=== PATIENT | female | born 1995 | race American Indian/Alaskan Native ===

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

== ENCOUNTER 2017-06-12 21:08 | Emergency (ER) | payer MEDICAID ==
[2017-06-12 21:15] VITALS: BP 119/71
--- NOTE | 2017-06-12 21:26 | EDM.PDOC ---
ED HPI GENERAL MEDICAL PROBLEM - General Chief Complaint: ENT Problem Stated Complaint: cold [id number] Time Seen by Provider: 06/12/17 21:25 Source of Information: Reports: Patient History Limitations: Reports: No Limitations - History of Present Illness INITIAL COMMENTS - FREE TEXT/NARRATIVE: sick for few days and 5 months , throat been hurting worse tonight. 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 History: Reports: None Neurological History: Reports: None Psychiatric History: Reports: Depression Endocrine/Metabolic History: Reports: None Hematologic History: Reports: None Immunologic History: Reports: None Oncologic (Cancer) History: Reports: None Dermatologic History: Reports: None - Past Surgical History Oncologic Surgical History: Reports: None Social & Family History - Family History Family Medical History: Noncontributory - Tobacco Use Smoking Status *Q: Never Smoker Years of Tobacco use: 1 Packs/Tins Daily: 2 Second Hand Smoke Exposure: No - Caffeine Use Caffeine Use: Reports: Coffee - Recreational Drug Use Recreational Drug Use: No ED ROS ENT - Review of Systems Review Of Systems: ROS reveals no pertinent complaints other than HPI. ED EXAM, ENT - Physical Exam Exam: See Below Exam Limited By: No Limitations General Appearance: Alert, WD/WN, No Apparent Distress Ears: TM Dullness Nose: Normal Inspection Mouth/Throat: Pharyngeal Erythema, Tonsillar Erythema, Tonsillar Swelling Head: Atraumatic Neck: Non-Tender, Full Range of Motion Respiratory/Chest: No Respiratory Distress, Lungs Clear, Normal Breath Sounds Cardiovascular: Regular Rate, Rhythm GI/Abdominal: Soft, Non-Tender Neurological: Alert, Oriented, Normal Cognition, Normal Gait, No Motor/Sensory Deficits Psychiatric: Normal Affect, Normal Mood Skin: Warm, Dry, Normal Color Lymphatic: No Adenopathy Course - Vital Signs Last Recorded V/S: Last Vital Signs Temp 37.2 C 06/12/17 21:11 Pulse 109 H 06/12/17 21:11 Resp 18 06/12/17 21:11 BP 119/71 06/12/17 21:11 Pulse Ox 98 06/12/17 21:11 - Orders/Labs/Meds Orders: Active Orders 24 hr Category Date Time Status CULTURE STREP A CONFIRMATION [RM] Stat Lab 06/12/17 21:23 Results STREP SCRN A RAPID W CULT CONF [RM] Stat Lab 06/12/17 21:23 Results - Re-Assessments/Exams Free Text/Narrative Re-Assessment/Exam: 06/12/17 21:45 results discussed with pt. Departure - Departure Time of Disposition: 21:45 Disposition: Home, Self-Care 01 Condition: Good Clinical Impression: URI (upper respiratory infection) Qualifiers: URI type: unspecified viral URI Qualified Code(s): J06.9 - Acute upper respiratory infection, unspecified - Discharge Information Instructions: Upper Respiratory Infection, Adult, [id number] Forms: ED Department Discharge Additional Instructions: 1) rest as much as possible 2) drink lots of liquids 3) take tylenol as needed for fever 4) follow up with OB doctor - My Orders Last 24 Hours: My Active Orders 06/12/17 21:23 CULTURE STREP A CONFIRMATION [RM] Stat STREP SCRN A RAPID W CULT CONF [RM] Stat - Assessment/Plan Last 24 Hours: My Active Orders 06/12/17 21:23 CULTURE STREP A CONFIRMATION [RM] Stat STREP SCRN A RAPID W CULT CONF [RM] Stat
== END 2017-06-12 21:48 | disposition home or self-care (01) ==
LOC: DL.ED 21:08
DX: O99.512 Diseases of the respiratory system complicating pregnancy, second trimester (principal); J06.9 Acute upper respiratory infection, unspecified
CPT/HCPCS: 87081; 87430; 99283

== ENCOUNTER 2017-09-23 11:11 | Inpatient (IN) | payer MEDICAID ==
[~2017-09-23 11:11] MED LIST: Acetaminophen 325 MG Tab PO PRN; Carboprost Tromethamine 250 MCG/1 ML Amp IM PRN; Lactated Ringers 500 ML IV ONE; Lidocaine 1% 30 ML SDV INJECT PRN; Methylergonovine 0.2 MG/1 ML Amp IM PRN; Misoprostol 25 MCG (1/4 of 100 MCG) Tab VAG PRN; Misoprostol 400 MCG (4 X 100 MCG TAB) RECTAL PRN; Oxytocin/Normal Saline 30 UNIT/500 ML BAG IV SCH; Sodium Chloride 0.9% 10 ML Syringe FLUSH PRN; Tranexamic Acid 1,000 MG in Sodium Chloride 0.9% 100 ML IV PRN
[2017-09-23] MEDS ORDERED: Misoprostol 50 MCG (1/2 of 100 MCG) Tab VAG ONE (18:02)
[2017-09-23] MEDS ORDERED: hydrOXYzine HCl 25 MG Tab PO PRN (22:52)
[2017-09-23] MEDS: Lactated Ringers 1,000 ML IV SCH (23:07)
[2017-09-24] MEDS ORDERED: Nalbuphine 10 MG/1 ML Vial IM PRN (01:15)
[2017-09-24] MEDS: Nalbuphine 10 MG/1 ML Vial IM PRN ×2 (03:56→08:43)
[2017-09-24] MEDS: Lactated Ringers 1,000 ML IV SCH ×3 (09:57→14:13)
[2017-09-24] MEDS: Ondansetron 4 MG/2 ML SDV IV PRN (12:49)
[2017-09-24] MEDS ORDERED: fentaNYL 100 MCG/2 ML SDV ONE (13:01)
[2017-09-24] MEDS ORDERED: Bupivacaine 0.75%/D5W 2 ML Amp ONE (13:01)
[2017-09-24] MEDS ORDERED: EPINEPHrine 1 MG/ML SDV ONE (13:02)
--- NOTE | 2017-09-24 13:45 | PCM.SN ---
- Free Text/Narrative Note: Intrathecal. Sitting position, sterile prep and drape. 1 % lidocaine w bicarb for skinwheal to L3 L4 interspace and L2 L3 interspace. Introducer and 24 ga Pencan x2 to L3 L4 with no CSF, introducer and 24 ga pencan x 1 to L2 L3 interspace x 1. Pos CSF neg heme, neg parasthesia. 0.1 ml pf 1:1000 epi, 0.4 ml pf NS , 20 mcg pf sufenta, 30 mcg pf fentanyl and 6 mg of 0.75% pf bupivacaine injected after CSF aspiration. Pt to L lateral position. Procedure time 1300 to 1345
[2017-09-24] MEDS ORDERED: Zolpidem 5 MG Tab PO PRN (17:38)
[2017-09-24] MEDS ORDERED: Docusate Sodium 100 MG Cap PO PRN (17:38)
[2017-09-24] MEDS ORDERED: Simethicone 80 MG Tab.Chew PO PRN (17:38)
[2017-09-24] MEDS ORDERED: Benzocaine/Menthol 20%-0.5% Spray 56 GM Canister TOP PRN (17:38)
[2017-09-24] MEDS ORDERED: Oxytocin 10 Units/1 ML SDV IM PRN (17:38)
[2017-09-24] MEDS ORDERED: Sodium Chloride 0.9% 10 ML Syringe FLUSH PRN (17:48)
[2017-09-25] MEDS: Ibuprofen 800 MG Tab PO PRN ×2 (08:56→17:32)
[2017-09-25] MEDS ORDERED: Prenatal Multivitamin with Calcium/Folic Acid/Iron Tab PO SCH (09:00)
[2017-09-25] MEDS: Ondansetron 4 MG/2 ML SDV IV PRN (09:24)
[2017-09-25] MEDS ORDERED: Measles, Mumps & Rubella Vaccine 0.5 ML SDV SUBCUT ONE (14:22)
[2017-09-26] MEDS: Ibuprofen 800 MG Tab PO PRN (01:51)
[2017-09-26] MEDS ORDERED: Ferrous Sulfate 325 MG Tab PO SCH (08:00)
[2017-09-26] MEDS ORDERED: Prenatal Multivitamin with Calcium/Folic Acid/Iron Tab PO SCH (09:00)
[2017-09-26 10:44] VITALS: BP 109/58
--- NOTE | 2017-09-26 10:53 | PN ---
DATE: 09/23/2017 SUBJECTIVE: The patient is feeling contractions, rating 6/10. She is now status post Cytotec x2, one was 25 mcg and last one was 50 mcg. She is due for another one around 11:00 p.m. OBJECTIVE: heart tones in the 130s to 140s range and as high as in the 150s with accelerations noted. Tocometer reveals contractions every 1 to 2-1/2 minutes. Vaginal exam deferred until next dose of Cytotec may be given. ASSESSMENT AND PLAN: 1. Intrauterine at 37 weeks by 15-week ultrasound complicated by intrahepatic cholestasis of and rubella nonimmune. 2. 1, para 0. 3. Maternal anemia with hemoglobin 9.8 upon admission. PLAN: We will continue to follow clinically and closely. Consider Cytotec repeat dose of 50 mcg at 11:00 p.m. if able. Otherwise, we will continue to follow clinically and closely. Plans were discussed with the patient. She understands and agrees with the above treatment plan. [facility] /[id number]
--- NOTE | 2017-09-26 11:00 | PN ---
DATE: 09/24/2017 SUBJECTIVE: The patient's contractions are getting stronger. She is now status post Cytotec x2. Yesterday, she had spontaneous rupture of membranes that was obvious with clear fluid approximately at 12:30 a.m. Today, her contractions are getting stronger. She rates them as 6 to 8/10, felt in the back region mainly. OBJECTIVE: Vital Signs: Temperature 98.4, heart rate 62, and blood pressure 119/73. Appearance: Female, appears stated age, breathing through contractions, answering questions appropriately in between, and using oxygen currently due to heart tone concerns. Pelvic: heart tones in the 130s range. There is at least one acceleration seen prior to vaginal exam and suspected one during vaginal exam. Tocometer reveals contractions every 1.5 to 3 minutes. Vaginal exam reveals her to be 4 to 4.5 cm, 95% effaced, 0 to -1 station, and vertex suspected with clear fluid noted. ASSESSMENT: Intrauterine now 37 and 1/7 weeks by a 15-week ultrasound, complicated by intrahepatic cholestasis of , now status post Cytotec x2 with spontaneous rupture of membranes at approximately 12:30 a.m., continuing into active labor with cervical change. PLAN: We will continue to follow clinically and closely. She got potential for intrathecal in the near future, and the patient understands and agrees with the above treatment plan. [facility] /[id number]
--- NOTE | 2017-09-26 11:06 | PN ---
DATE: 09/24/2017 SUBJECTIVE: The patient is comfortable, status post intrathecal. Feels occasional pain in her back with contraction. OBJECTIVE: Vital Signs: Blood pressure 107/56 and heart rate 57. Pelvic: heart tones in the 140s to 150s range, felt to be reactive and reassuring. Tocometer, is difficult to read the contractions. Sometimes, they are spaced every 6 to 8 minutes apart, every minute apart. Pitocin is currently at 12 milliunits per minute. Vaginal exam reveals her to be 7 cm, 100% effaced, 0 station, vertex suspected, and IUPC placed after discussion with the patient. ASSESSMENT AND PLAN: Intrauterine at 37 and 1/7 weeks, complicated by ICP and rubella nonimmune. The patient with anemia with hemoglobin of 9.8 upon admission in a G1, P0, with spontaneous rupture of membranes at 0:30 a.m., now status post Cytotec x2 yesterday. Pitocin augmentation today and then subsequently IUPC as above with intrathecal as well. She is continuing to have cervical dilation. We will continue to follow clinically and closely. We will follow MVUs and contraction status closely, now that IUPC has been placed. [facility] /[id number]
[2017-09-26] MEDS ORDERED: fentaNYL 100 MCG/2 ML SDV ITHECAL ONE (11:43)
[2017-09-26] MEDS ORDERED: Sodium Chloride 0.9% 10 ML SDV ONE (11:43)
[2017-09-26] MEDS ORDERED: EPINEPHrine 1 MG/ML SDV IV ONE (11:43)
[2017-09-26] MEDS ORDERED: Bupivacaine 0.75%/D5W 2 ML Amp INJECT ONE (11:43)
--- NOTE | 2017-09-26 11:45 | PN ---
DATE: 09/25/2017 day #1. SUBJECTIVE: The patient is tolerating p.o.'s, ambulating, urinating, and passing flatus. She denies any headaches, visual changes, or upper abdominal pain. Her scratching has decreased. OBJECTIVE: Vital Signs: Temperature 97.5, heart rate 92, blood pressure 108/68, respiratory rate 18. She did have some elevated blood pressures through the night, nothing in the severe range, highest one was 152/83. General Appearance: Lying on the bed. Lungs: Clear to auscultation bilaterally. No increased work of breathing. Heart: S1 and S2. Regular rate and rhythm. Abdomen: Firm uterus at -1 below umbilicus. LABORATORY DATA: White cell count 14.3, hemoglobin 9.8, platelets 393. ASSESSMENT AND PLAN: 1. day #1, status post spontaneous vaginally complicated by shoulder dystocia at 30 seconds, requiring Justo and suprapubic pressure as well as repair of left vaginal sidewall laceration, and uterine atony, requiring Hemabate x1. She had some diarrhea last night, this seems to be resolved at this point in time. 2. Maternal anemia. Hemoglobin 9.8 predelivery and today with increased white cell count. We will re-evaluate CBC tomorrow. She is currently does not have any fevers or uterine tenderness, and we will follow clinically and closely. [facility] /[id number]
--- NOTE | 2017-09-26 11:54 | OBOUT ---
DATE: 09/23/2017 DATE AND TIME OF NST: Date: 09/23/2017 Time: 11:50 to 12:00. REASON FOR NST: 1. Intrauterine at 37 weeks by 15 week ultrasound. 2. Intrahepatic cholestasis of . 3. Rubella nonimmune. 4. History of maternal anemia. NST INTERPRETATION: During this time period, heart tone baseline is approximately 125, and there are two 15 x 15 beat per minute accelerations, making this strip reactive. It is also noted to be reassuring. Tocometer reveals potential of 1 contraction during this time. ASSESSMENT: 1. Nonstress test, reactive and reassuring. 2. Tocometer with contractions. Blood pressure 101/64, heart rate 94, temperature 98, O2 sats 96%. H and P done in through Epic. Otherwise, review of systems fully reviewed and felt to be noncontributory, and update sticker attached to the history and physical through the Epic notes. PLAN: We will proceed to Cytotec type of induction. At current time of dictation, nurse has concerns with a reactive strip. She is going to reapply the monitor as patient is eating and most likely place Cytotec thereafter. Consent has been obtained. For H and P, records were called for reviewed and supplemented by patient history. Review of systems was fully reviewed and otherwise contributory per Epic history and physical. Labs reveal a CBC with a white cell count 8.3, hemoglobin 9.8, and platelets 424. Discussed with patient proceeding with Cytotec in the near future. She understands agrees. [facility] /[id number]
--- NOTE | 2017-09-26 13:19 | PCM.DCSUM1 ---
Discharge Summary - Hospital Course Free Text/Narrative:: PPD #2 09-26-17 DISCHARGE DAY ready for discharge today nursing Rx written for breast pump. Hgb 8.9, down from 9.8 on admit. Asymptomatic VSS, afebrile exam WNL. home today. routine orders. 6 week check, sooner prn. ICP sx resolved. HPI Initial Comments: induced for ICP, , see Maryana's notes for details. viable male , APGARs 6 & 8 7lb 3oz nursing. Diagnosis: Stroke: No - Discharge Data Discharge Date: 09/26/17 Discharge Disposition: Home, Self-Care 01 Condition: Good - Discharge Diagnosis/Problem(s) (1) Vaginal delivery SNOMED Code(s): 463123272 ICD Code: O80 - ENCOUNTER FOR FULL-TERM UNCOMPLICATED DELIVERY Status: Acute Current Visit: Yes (2) Anemia affecting in third trimester SNOMED Code(s): 10976119, 13393078 ICD Code: O99.013 - ANEMIA COMPLICATING , THIRD TRIMESTER Status: Acute Current Visit: Yes (3) Intrahepatic cholestasis of , delivered, curr hospitalization SNOMED Code(s): 080609246 ICD Code: O26.62 - LIVER AND BILIARY TRACT DISORDERS IN CHILDBIRTH; K83.1 - OBSTRUCTION OF BILE DUCT Status: Acute Current Visit: Yes - Patient Instructions Diet: Usual Diet as Tolerated Activity: As Tolerated Activity, Other: light activity at first Showering/Bathing: May Shower Notify Provider of: Fever, Increased Pain, Swelling and Redness Other/Special Instructions: continue iron supplement, use ibuprofen OTC prn for cramping. attend Baby and I if able. 6 week check up. - Discharge Plan *PRESCRIPTION DRUG MONITORING PROGRAM REVIEWED*: Not Applicable *COPY OF PRESCRIPTION DRUG MONITORING REPORT IN PATIENT [place]: Not Applicable Home Medications: Home Meds Vit W-Ca,Fe,FA(<1 mg) [ Vitamins] 1 tab PO DAILY 10/16/16 [ History] Ferrous Sulfate [Iron] 1 tab PO DAILY 09/22/17 [History] hydrOXYzine pamoate [Hydroxyzine Pamoate] 1 - 2 tab PO BEDTIME PRN 09/22/17 [ History] Patient Handouts: Home Care Instructions for Mom - Discharge Summary/Plan Comment DC Time >30 min.: No Discharge Summary/Plan Comment: follow up at 6 weeks and prn. b - General Info Date of Service: 09/26/17 (Discharge summary) Admission Dx/Problem (Free Text: 37 week IUP maternal ICP anemia rubella nonimmune primip Subjective Update: feels well. ready for discharge. flow light nursing. pain controlled needs Rx for breast pump eating, voiding, ambulating well Functional Status: Reports: Pain Controlled - Review of Systems General: Reports: No Symptoms HEENT: Reports: No Symptoms Pulmonary: Reports: No Symptoms Cardiovascular: Reports: No Symptoms Gastrointestinal: Reports: No Symptoms Genitourinary: Reports: No Symptoms 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: Reports: No Symptoms Skin: Reports: No Symptoms Neurological: Reports: No Symptoms Psychiatric: Reports: No Symptoms - Patient Data Vitals - Most Recent: Last Vital Signs Temp 97.9 F 09/26/17 08:00 Pulse 82 09/26/17 08:00 Resp 16 09/26/17 08:00 BP 109/58 L 09/26/17 08:00 Pulse Ox 99 09/25/17 20:00 Weight - Most Recent: 2009 lb Lab Results - Last 24 hrs: Laboratory Results - last 24 hr 09/26/17 Range/Units 06:15 WBC 13.0 H (5.0-10.0) 10^3/uL RBC 3.63 L (4.2-5.4) 10^6/uL Hgb 8.9 L (12.0-16.0) g/dL Hct 28.2 L (37.0-47.0) % MCV 77.7 L (80-100) fL MCH 24.5 L (27.0-34.0) pg MCHC 31.6 L (33.0-35.0) g/dL Plt Count 389 (150-450) 10^3/uL Med Orders - Current: Current Medications Acetaminophen (Tylenol) 650 mg PO Q4H PRN PRN Reason: Pain (Mild 1-3) and fever Last Admin: 09/26/17 09:14 Dose: 650 mg Benzocaine/Menthol (Dermoplast Pain Relief [place]) 0 gm TOP Q4H PRN PRN Reason: Perineal comfort measures Last Admin: 09/25/17 04:13 Dose: 1 applic Carboprost Tromethamine (Hemabate Ds) 250 mcg IM ASDIRECTED PRN PRN Reason: HEMORRHAGE Last Admin: 09/24/17 19:07 Dose: 250 mcg Docusate Sodium (Colace) 100 mg PO BID PRN PRN Reason: Constipation Ferrous Sulfate (Ferrous Sulfate) 325 mg PO BRK [facility] Last Admin: 09/26/17 09:14 Dose: 325 mg Tranexamic Acid 1,000 mg/ (Sodium Chloride) 110 mls @ 660 mls/hr IV ONETIME PRN PRN Reason: Bleeding Lactated Ringer's (Ringers, Lactated) 1,000 mls @ 125 mls/hr IV ASDIRECTED THAIS Last Admin: 09/24/17 14:13 Dose: 125 mls/hr Oxytocin/Sodium Chloride (Pitocin In Ns 30 Unit/500 Ml) 30 unit in 500 mls @ 2 mls/hr IV TITRATE [facility]; Protocol Last Titration: 09/24/17 17:56 Dose: 500 munits/min, 500 mls/hr Oxytocin/Sodium Chloride (Pitocin In Ns 30 Unit/500 Ml) 30 unit in 500 mls @ 2 mls/hr IV TITRATE [facility]; Protocol Ibuprofen (Motrin) 800 mg PO Q8H PRN PRN Reason: Mild Pain or Fever Last Admin: 09/26/17 01:51 Dose: 800 mg Lidocaine HCl (Xylocaine-Mpf 1%) 10 ml INJECT ASDIRECTED PRN PRN Reason: Perineal Repair Last Admin: 09/24/17 19:07 Dose: 10 ml Methylergonovine Maleate (Methergine) 0.2 mg IM ASDIRECTED PRN PRN Reason: Hemorrhage Misoprostol (Cytotec) 800 mcg RECTAL ASDIRECTED PRN PRN Reason: Hemorrhage Misoprostol (Cytotec) 25 mcg VAG Q4H PRN PRN Reason: cervical ripening Last Admin: 09/23/17 13:25 Dose: 25 mcg Ondansetron HCl (Zofran) 4 mg IV Q4H PRN PRN Reason: Nausea/Vomiting Last Admin: 09/25/17 09:24 Dose: 4 mg Oxytocin (Pitocin) 10 unit IM ONETIME PRN PRN Reason: Bleeding Prenat Multivit/Loving/Iron/Folic Ac ( Plus Iron) 1 each PO DAILY THAIS Last Admin: 09/26/17 09:14 Dose: 1 each Simethicone (Simethicone) 80 mg PO Q4H PRN PRN Reason: Gas Sodium Chloride (Saline Flush) 10 ml FLUSH ASDIRECTED PRN PRN Reason: Keep Vein Open Sodium Chloride (Saline Flush) 10 ml FLUSH ASDIRECTED PRN PRN Reason: Keep Vein Open Zolpidem Tartrate (Ambien) 5 mg PO BEDTIME PRN PRN Reason: Insomnia Discontinued Medications Acetaminophen (Tylenol) 650 mg PO Q4H PRN PRN Reason: Pain/Fever Bupivacaine HCl/Dextrose (Marcaine 0.75% Spinal) Confirm Administered Dose 2 ml .ROUTE .STK-MED ONE Stop: 09/24/17 13:02 Last Admin: 09/24/17 20:26 Dose: Not Given Bupivacaine HCl/Dextrose (Marcaine 0.75% Spinal) 0.8 ml INJECT .STK-MED ONE Stop: 09/26/17 11:44 Epinephrine HCl (Adrenalin) Confirm Administered Dose 1 mg .ROUTE .STK-MED ONE Stop: 09/24/17 13:03 Last Admin: 09/24/17 20:27 Dose: Not Given Epinephrine HCl (Adrenalin) 0.1 mg IV .STK-MED ONE Stop: 09/26/17 11:44 Fentanyl (Sublimaze) Confirm Administered Dose 100 mcg .ROUTE .STK-MED ONE Stop: 09/24/17 13:02 Last Admin: 09/24/17 20:26 Dose: Not Given Fentanyl (Sublimaze) 30 mcg ITHECAL .STK-MED ONE Stop: 09/26/17 11:44 Hydroxyzine HCl (Atarax) 50 mg PO Q6H PRN PRN Reason: PAIN Last Admin: 09/23/17 23:30 Dose: 50 mg Lactated Ringer's (Ringers, Lactated) 500 mls @ 500 mls/hr IV .BOLUS ONE Stop: 09/23/17 09:18 Last Admin: 09/23/17 20:00 Dose: 500 mls/hr Lidocaine HCl (Xylocaine-Mpf 1%) 3 ml INJECT .STK-MED ONE Stop: 09/26/17 11:44 Measles/Mumps/Rubella Vaccine Live (M-M-R Ii Vaccine) 0.5 ml SUBCUT .ONCE ONE Stop: 09/25/17 14:23 Last Admin: 09/25/17 14:31 Dose: 0.5 ml Misoprostol (Cytotec) 50 mcg VAG ONETIME ONE Stop: 09/23/17 18:03 Last Admin: 09/23/17 18:50 Dose: 50 mcg Nalbuphine HCl (Nubain) 10 mg IM Q3H PRN PRN Reason: Pain Nalbuphine HCl (Nubain) 20 mg IM Q3H PRN PRN Reason: Pain Last Admin: 09/24/17 08:43 Dose: 20 mg Prenat Multivit/Loving/Iron/Folic Ac ( Plus Iron) 1 each PO DAILY THAIS Last Admin: 09/25/17 08:56 Dose: 1 each Sodium Bicarbonate (Sodium Bicarbonate 4.2%) Confirm Administered Dose 5 meq .ROUTE .STK-MED ONE Stop: 09/24/17 13:03 Last Admin: 09/24/17 20:27 Dose: Not Given Sodium Bicarbonate (Sodium Bicarbonate 4.2%) 0.5 meq .XX .STK-MED ONE Stop: 09/26/17 11:44 Sodium Chloride (Normal Saline) 0.2 ml .XX .STK-MED ONE Stop: 09/26/17 11:44 Sufentanil Citrate (Sufenta) Confirm Administered Dose 50 mcg .ROUTE .STK-MED ONE Stop: 09/24/17 13:03 Last Admin: 09/24/17 20:27 Dose: Not Given Sufentanil Citrate (Sufenta) 20 mcg ITHECAL .STK-MED ONE Stop: 09/26/17 11:44 - Exam General: Reports: Alert, Oriented HEENT: Reports: Pupils Equal, Pupils Reactive, EOMI, Mucous Membr. Moist/[place] Neck: Reports: Supple Lungs: Reports: Clear to Auscultation, Normal Respiratory Effort Cardiovascular: Reports: Regular Rate, Regular Rhythm GI/Abdominal Exam: Normal Bowel Sounds, Soft, Non-Tender, No Organomegaly, No Distention, No Abnormal Bruit, No Mass, Pelvis Stable (Female) Exam: Normal External Exam, Normal Speculum Exam, Normal Bimanual Exam Rectal (Female) Exam: Normal Exam, Normal Rectal Tone Back Exam: Reports: Normal Inspection, Full Range of Motion Extremities: Normal Inspection, Normal Range of Motion, Non-Tender, No Pedal Edema, Normal Capillary Refill Skin: Reports: Warm, Dry, Intact Wound/Incisions: Reports: Healing Well Neurological: Reports: No New Focal Deficit Psy/Mental Status: Reports: Alert, Normal Affect, Normal Mood
--- NOTE | 2017-09-26 13:57 | DEL ---
DATE: 09/24/2017 PREOPERATIVE DIAGNOSES: 1. Intrauterine at 37 and 1/7 weeks by 15-week ultrasound. 2. Intrahepatic cholestasis of . 3. Rubella nonimmune. 4. Maternal anemia with hemoglobin 9.8. 5. G1, P0. 6. Spontaneous rupture of membranes, 12:30 a.m. on 09/24/2017. POSTOPERATIVE DIAGNOSES: 1. Intrauterine at 37 and 1/7 weeks by 15-week ultrasound - delivered. 2. Intrahepatic cholestasis of . 3. Rubella nonimmune. 4. Maternal anemia with hemoglobin 9.8. 5. G1, P0. 6. Spontaneous rupture of membranes, 12:30 a.m. on 09/24/2017. 7. Delivered. 8. MAHSA presentation. 9. 30-second shoulder dystocia requiring Justo and suprapubic pressure. 10.Uterine atony, requiring Hemabate x1. 11.Vaginal sidewall laceration-abrasion bleeding, requiring repair. PROCEDURES PERFORMED: On 09/23, NST followed by Cytotec x2, and then on 09/24/2017, Pitocin with IUPC monitoring and subsequent spontaneous vaginal delivery complicated by shoulder dystocia as above and noted below. ANESTHESIA/ALLERGIES: The patient did receive an intrathecal in the first stage of labor. ESTIMATED BLOOD LOSS: 400 mL. FINDINGS: Male, score and weight are pending. SUMMARY OF EVENTS: The patient is a 21-year-old G1, P0, intrauterine , at 37 weeks upon admission, 37 and 1/7 weeks upon date of delivery that was admitted with intrahepatic cholestasis of , underwent NST followed by Cytotec x2 and then required Pitocin augmentation. On 09/24/2017, IUPC was placed as well. She had spontaneous rupture membranes at 12:30 a.m. prior to those procedures on 09/24/2017. Subsequently, she received an intrathecal in the first stage of labor. She progressed with continued cervical dilation in labor. She was found to be complete and started pushing. I was subsequently called to the room and donned sterile gown and gloves and with the patient pushing with contractions, vertex was delivered in a MAHSA presentation. Shoulder dystocia was noted. Justo maneuver ensued and despite this, shoulder dystocia persisted and then subsequently, nurse applied suprapubic pressure, and anterior shoulder was delivered. Posterior shoulder and rest of delivered thereafter without difficulty. This shoulder dystocia lasted 30 seconds. After delivery, mouth and nares were suctioned. Cord was doubly clamped cut and was brought over warmer for resuscitation. Then, approximately 10 mL cord was obtained for labs. Placenta then delivered with gentle cord traction and fundal massage within 5 to 10 minutes. Perineum, vagina, and perirectal areas were then examined and noted to have a left vaginal sidewall laceration/abrasion bleeding that was subsequently anesthetized 1% lidocaine without epinephrine and repaired in usual fashion using 1-0 Vicryl. Perineum, vagina, perirectal areas were then examined thereafter, no other tears or lacerations noted. Mother is currently stable at time of dictation. is being evaluated and worked up due to respiratory issues as well as tachycardia and potential for fever. Of note, in the second stage of labor, heart tones did reveal some tachycardia and she was delivered shortly after upon my arrival in the room. [facility] /[id number]
== END 2017-09-26 13:40 | disposition home or self-care (01) | DRG 775 ==
LOC: DL.OBCHECK 11:11 → DL.OB 09-24 02:45 → OBSVTOIN 09-24 17:53
PROVIDERS: ADMIT Family Medicine; ATTEND Family Medicine
PROC: 10E0XZZ Delivery of Products of Conception, External Approach (ICD-10-PCS; principal; 2017-09-24)
PROC: 0UQGXZZ Repair Vagina, External Approach (ICD-10-PCS; 2017-09-24)
PROC: 3E033VJ Introduction of Other Hormone into Peripheral Vein, Percutaneous Approach (ICD-10-PCS; 2017-09-24)
PROC: 3E0S3BZ Introduction of Anesthetic Agent into Epidural Space, Percutaneous Approach (ICD-10-PCS; 2017-09-24)
PROC: 10H07YZ Insertion of Other Device into Products of Conception, Via Natural or Artificial Opening (ICD-10-PCS; 2017-09-24)
PROC: 4A1H74Z Monitoring of Products of Conception, Cardiac Electrical Activity, Via Natural or Artificial Opening (ICD-10-PCS; 2017-09-24)
PROC: 4A0HX4Z Measurement of Products of Conception, Cardiac Electrical Activity, External Approach (ICD-10-PCS; 2017-09-24)
PROC: 3E0234Z Introduction of Serum, Toxoid and Vaccine into Muscle, Percutaneous Approach (ICD-10-PCS; 2017-09-25)
DX: O26.62 Liver and biliary tract disorders in childbirth (principal); K83.1 Obstruction of bile duct; O71.4 Obstetric high vaginal laceration alone; Z37.0 Single live birth; Z3A.37 37 weeks gestation of pregnancy; O76 Abnormality in fetal heart rate and rhythm complicating labor and delivery; O99.02 Anemia complicating childbirth; D64.9 Anemia, unspecified; O66.0 Obstructed labor due to shoulder dystocia; O62.2 Other uterine inertia; Z23 Encounter for immunization
CPT/HCPCS: 01967; 36415; 59025; 59300; 59409; 85027; 90471; 90707; A9270-GY; J0171; J2300; J2405; J2590; J3010; J7120

== ENCOUNTER 2017-10-31 20:11 | Emergency (ER) | payer MEDICAID ==
[2017-10-31 20:36] VITALS: BP 116/71
--- NOTE | 2017-10-31 21:14 | EDM.PDOC ---
ED HPI GENERAL MEDICAL PROBLEM - General Chief Complaint: Abdominal Pain Stated Complaint: STOMACH ACHE [id number] Time Seen by Provider: 10/31/17 21:00 Source of Information: Reports: Patient, RN, RN Notes Reviewed History Limitations: Reports: No Limitations - History of Present Illness INITIAL COMMENTS - FREE TEXT/NARRATIVE: Pt to ER with c/o a sore on the lower abdomen under the belly button. She states she was wearing a belt that she thinks may have caused irritation and the sore. She states she stopped wearing the belt. She noticed the area about 1 week ago. Patient states she has been cleaning the area with antibiotic ointment daily. She states she has had the chills but denies N/V/D, fever. Patient states she had a baby vaginally a few weeks ago and is not breast feeding. Patient states she does not have a history of MRSA. Does admit to "pus " drainage from the area as well as small amounts of blood. Patient also c/o recent sore throat and pain to the left ear. Onset: Gradual Lower Abdomen Pain Score (Numeric/FACES): 6 - Related Data Allergies Allergy/AdvReac Type Severity Reaction Status Date / Time No Known Allergies Allergy Verified 10/31/17 20:38 Home Meds: Home Meds Vit W-Ca,Fe,FA(<1 mg) [ Vitamins] 1 tab PO DAILY 10/16/16 [ History] Ferrous Sulfate [Iron] 1 tab PO DAILY 09/22/17 [History] hydrOXYzine pamoate [Hydroxyzine Pamoate] 1 - 2 tab PO BEDTIME PRN 09/22/17 [ History] Past Medical History - Past Health History Medical/Surgical History: Denies Medical/Surgical History HEENT History: Reports: None Cardiovascular History: Reports: None Respiratory History: Reports: None Gastrointestinal History: Reports: None Genitourinary History: Reports: None 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: 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 History: Reports: None Neurological History: Reports: None Psychiatric History: Reports: Depression Endocrine/Metabolic History: Reports: None Hematologic History: Reports: Anemia Immunologic History: Reports: None Oncologic (Cancer) History: Reports: None Dermatologic History: Reports: None - Infectious Disease History Infectious Disease History: Reports: None - Past Surgical History Head Surgeries/Procedures: Reports: None Oncologic Surgical History: Reports: None Social & Family History - Family History Family Medical History: Noncontributory - Tobacco Use Smoking Status *Q: Never Smoker Second Hand Smoke Exposure: No - Caffeine Use Caffeine Use: Reports: Tea - Recreational Drug Use Recreational Drug Use: No ED ROS GENERAL - Review of Systems Review Of Systems: ROS reveals no pertinent complaints other than HPI. ED EXAM, SKIN/RASH Exam: See Below Exam Limited By: No Limitations General Appearance: Alert, WD/WN, No Apparent Distress Eye Exam: Bilateral Eye: EOMI, Normal Inspection Ears: Normal External Exam, Hearing Grossly Normal, Other (canal erythematous and TM have fluid behind them bilaterally) Nose: Normal Inspection Throat/Mouth: Normal Inspection, Normal Voice, No Airway Compromise Head: Atraumatic, Normocephalic Neck: Normal Inspection, Supple, Non-Tender, Full Range of Motion Respiratory/Chest: No Respiratory Distress, Lungs Clear, Normal Breath Sounds, No Accessory Muscle Use, Chest Non-Tender Cardiovascular: Normal Peripheral Pulses, Regular Rate, Rhythm, No Edema, No Gallop, No JVD, No Murmur, No Rub Peripheral Pulses: 2+: Radial (L), Radial (R) GI/Abdominal: Normal Bowel Sounds, Soft, Tender (Female) Exam: Deferred Rectal (Female) Exam: Deferred Back Exam: Normal Inspection, Full Range of Motion Extremities: Normal Inspection, Normal Range of Motion, Non-Tender, No Pedal Edema, Normal Capillary Refill Neurological: Alert, Oriented, CN II-XII Intact, Normal Cognition, Normal Gait, Normal Reflexes, No Motor/Sensory Deficits Psychiatric: Normal Affect, Normal Mood Skin: Warm, Dry, Wound/Incision (1cm linear lac like appearance, 3 areas. Small amount of blood drainage. Foul smelling) Location, Skin: Abdomen Characteristics: Linear Associated features: Warmth, Tenderness, Weeping Lymphatic: No Adenopathy Course - Vital Signs Last Recorded V/S: Last Vital Signs Temp 96.8 F 10/31/17 20:19 Pulse 96 10/31/17 20:19 Resp 19 10/31/17 20:19 BP 116/71 10/31/17 20:19 Pulse Ox 99 10/31/17 20:19 - Orders/Labs/Meds Orders: Active Orders 24 hr Category Date Time Status CULTURE STREP A CONFIRMATION [RM] Stat Lab 10/31/17 20:48 Results CULTURE WOUND [RM] Urgent Lab 10/31/17 23:04 Ordered STREP SCRN A RAPID W CULT CONF [RM] Stat Lab 10/31/17 20:48 Results Labs: Rapid strep: Negative Meds: Medications Discontinued Medications Generic Name Dose Route Start Last Admin Trade Name Alem PRN Reason Stop Dose Admin Mupirocin 1 gm 11/01/17 09:00 10/31/17 21:28 Bactroban Oint TOP 1 dose TID THAIS Administration Mupirocin Confirm 10/31/17 21:24 10/31/17 21:29 Bactroban Oint Administered 10/31/17 21:25 Not Given Dose 22 gm .ROUTE .STK-MED ONE Trimethoprim/Sulfamethoxazole 1 tab 10/31/17 21:17 10/31/17 21:28 Septra Ds PO 10/31/17 21:18 1 tab ONETIME ONE Administration Departure - Departure Time of Disposition: 21:18 Disposition: Home, Self-Care 01 Condition: Fair Clinical Impression: Abscess - Discharge Information *PRESCRIPTION DRUG MONITORING PROGRAM REVIEWED*: No *COPY OF PRESCRIPTION DRUG MONITORING REPORT IN PATIENT [place]: No Instructions: Skin Abscess, [id number] Referrals: Pao Jeong MD [Primary Care Provider] - Forms: ED Department Discharge Additional Instructions: Use an over the counter decongestant for post nasal drip/sore throat and fluid in the ears RX: Bactrim and Bactroban Follow up with your primary care facility - My Orders Last 24 Hours: My Active Orders 10/31/17 20:48 CULTURE STREP A CONFIRMATION [RM] Stat STREP SCRN A RAPID W CULT CONF [RM] Stat 10/31/17 23:04 CULTURE WOUND [RM] Urgent - Assessment/Plan Last 24 Hours: My Active Orders 10/31/17 20:48 CULTURE STREP A CONFIRMATION [RM] Stat STREP SCRN A RAPID W CULT CONF [RM] Stat 10/31/17 23:04 CULTURE WOUND [RM] Urgent
[2017-10-31] MEDS ORDERED: Sulfamethoxazole/Trimethoprim 800-160 MG Tab PO ONE (21:17)
[2017-10-31] MEDS ORDERED: Mupirocin Oint 22 GM Tube ONE (21:24)
[2017-11-01] MEDS ORDERED: Mupirocin Oint 22 GM Tube TOP SCH (09:00)
== END 2017-10-31 21:36 | disposition home or self-care (01) ==
LOC: DL.ED 20:11
DX: O99.73 Diseases of the skin and subcutaneous tissue complicating the puerperium (principal); L02.211 Cutaneous abscess of abdominal wall
CPT/HCPCS: 87070; 87081; 87430; 99283; A9270-GY

== ENCOUNTER 2018-03-27 22:49 | Emergency (ER) | payer MEDICAID ==
[2018-03-27 22:55] VITALS: BP 124/64
--- NOTE | 2018-03-27 23:23 | EDM.PDOC ---
ED HPI GENERAL MEDICAL PROBLEM - General Chief Complaint: ENT Problem Stated Complaint: SICK [id number] Time Seen by Provider: 03/27/18 22:55 Source of Information: Reports: Patient History Limitations: Reports: No Limitations - History of Present Illness INITIAL COMMENTS - FREE TEXT/NARRATIVE: Ed with c/o sore throat since Tuesday. No fever, No cough No nausea or vomiting. Taking cough syrup and ibuprofen Throat Pain Score (Numeric/FACES): 7 - Related Data Allergies Allergy/AdvReac Type Severity Reaction Status Date / Time No Known Allergies Allergy Verified 10/31/17 20:38 Home Meds: Home Meds Vit Calc,Iron,Folic [ Vitamins] 1 tab PO DAILY 10/16/16 [ History] Ferrous Sulfate [Iron] 1 tab PO DAILY 09/22/17 [History] hydrOXYzine pamoate [Hydroxyzine Pamoate] 1 - 2 tab PO BEDTIME PRN 09/22/17 [ History] Past Medical History - Past Health History Medical/Surgical History: Denies Medical/Surgical History HEENT History: Reports: None Cardiovascular History: Reports: None Respiratory History: Reports: None Gastrointestinal History: Reports: None Genitourinary History: Reports: None 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: 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 History: Reports: None Neurological History: Reports: None Psychiatric History: Reports: Depression Endocrine/Metabolic History: Reports: None Hematologic History: Reports: Anemia Immunologic History: Reports: None Oncologic (Cancer) History: Reports: None Dermatologic History: Reports: None - Infectious Disease History Infectious Disease History: Reports: None - Past Surgical History Head Surgeries/Procedures: Reports: None Oncologic Surgical History: Reports: None Social & Family History - Family History Family Medical History: Noncontributory - Tobacco Use Smoking Status *Q: Never Smoker - Caffeine Use Caffeine Use: Reports: Tea - Recreational Drug Use Recreational Drug Use: No ED ROS ENT - Review of Systems Review Of Systems: ROS reveals no pertinent complaints other than HPI. ED EXAM, ENT - Physical Exam Exam: See Below Exam Limited By: No Limitations General Appearance: Alert, No Apparent Distress Eye Exam: Bilateral Eye: EOMI Ears: Normal External Exam, Normal TMs Nose: Normal Inspection Mouth/Throat: Normal Inspection, Normal Lips, Normal Oropharynx Head: Atraumatic, Normocephalic Neck: Normal Inspection, Full Range of Motion Respiratory/Chest: No Respiratory Distress, Lungs Clear, Normal Breath Sounds Cardiovascular: Normal Peripheral Pulses, Regular Rate, Rhythm GI/Abdominal: Normal Bowel Sounds, Soft Back: Full Range of Motion Extremities: Normal Range of Motion Neurological: Alert, Oriented Psychiatric: Normal Affect, Normal Mood Skin: Warm, Dry, Intact, Normal Color Course - Vital Signs Last Recorded V/S: Last Vital Signs Temp 97.2 F 03/27/18 22:51 Pulse 81 03/27/18 22:51 Resp 17 03/27/18 22:51 BP 124/64 03/27/18 22:51 Pulse Ox 99 03/27/18 22:51 - Orders/Labs/Meds Orders: Active Orders 24 hr Category Date Time Status CULTURE STREP A CONFIRMATION [RM] Stat Lab 03/27/18 22:53 Results STREP SCRN A RAPID W CULT CONF [] Stat Lab 03/27/18 22:53 Results Departure - Departure Time of Disposition: 23:19 Disposition: Home, Self-Care 01 Condition: Good Clinical Impression: Sore throat - Discharge Information *PRESCRIPTION DRUG MONITORING PROGRAM REVIEWED*: Not Applicable Instructions: Sore Throat, [id number] Forms: ED Department Discharge Additional Instructions: alternate tylenol and ibuprofen every 4 hours as needed for discomfort increase fluids humidification salt water gargles clinic follow up as needed - My Orders Last 24 Hours: My Active Orders 03/27/18 22:53 CULTURE STREP A CONFIRMATION [RM] Stat STREP SCRN A RAPID W CULT CONF [RM] Stat - Assessment/Plan Last 24 Hours: My Active Orders 03/27/18 22:53 CULTURE STREP A CONFIRMATION [RM] Stat STREP SCRN A RAPID W CULT CONF [RM] Stat
== END 2018-03-27 23:33 | disposition home or self-care (01) ==
LOC: DL.ED 22:49
DX: J02.9 Acute pharyngitis, unspecified (principal)
CPT/HCPCS: 87081; 87430; 99283

== ENCOUNTER 2018-06-22 22:30 | Emergency (ER) | payer MEDICAID, OTHER ==
[2018-06-22 22:40] VITALS: BP 120/73; PULSE 80
--- NOTE | 2018-06-22 22:49 | EDM.PDOC ---
ED HPI GENERAL MEDICAL PROBLEM - General Chief Complaint: Abdominal Pain Stated Complaint: FELL DOWN- Time Seen by Provider: 06/22/18 22:48 Source of Information: Reports: Patient History Limitations: Reports: No Limitations - History of Present Illness INITIAL COMMENTS - FREE TEXT/NARRATIVE: fell onto right side this am been having pain there. also . FHT 150s. no bleeding. has h/o GB problem during . ate chef under salad with ranch dressing tonight. slight nausea but not vomiting. 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: 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 History: Reports: None Neurological History: Reports: None Psychiatric History: Reports: Depression Endocrine/Metabolic History: Reports: None Hematologic History: Reports: Anemia Immunologic History: Reports: None Oncologic (Cancer) History: Reports: None Dermatologic History: Reports: None - Infectious Disease History Infectious Disease History: Reports: None - Past Surgical History Head Surgeries/Procedures: Reports: None Oncologic Surgical History: Reports: None Social & Family History - Family History Family Medical History: Noncontributory - Tobacco Use Smoking Status *Q: Never Smoker Second Hand Smoke Exposure: No - Caffeine Use Caffeine Use: Reports: None - Recreational Drug Use Recreational Drug Use: No ED ROS GENERAL - Review of Systems Review Of Systems: ROS reveals no pertinent complaints other than HPI. ED EXAM, GI/ABD - Physical Exam Exam: See Below Exam Limited By: No Limitations General Appearance: Alert, WD/WN, Mild Distress, Other (upset) Ears: Hearing Grossly Normal Throat/Mouth: Normal Voice, No Airway Compromise Head: Atraumatic Neck: Non-Tender, Full Range of Motion Cardiovascular: Normal Peripheral Pulses GI/Abdominal Exam: Tender, Other (RUQ region). No: Distended, Guarding, Rigid, Rebound Neurological: Alert, Oriented, Normal Cognition, Normal Gait, No Motor/Sensory Deficits Psychiatric: Flat Affect Skin Exam: Warm, Dry, Normal Color Lymphatic: No Adenopathy Course - Vital Signs Last Recorded V/S: Last Vital Signs Temp 37.2 C 06/22/18 22:30 Pulse 80 06/22/18 22:30 Resp 18 06/22/18 22:30 BP 120/73 06/22/18 22:30 Pulse Ox - Orders/Labs/Meds Orders: Active Orders 24 hr Category Date Time Status CULTURE URINE [RM] Stat Lab 06/22/18 22:40 Received Labs: Laboratory Tests 06/22/18 06/22/18 06/22/18 Range/Units 22:40 22:40 23:00 WBC 11.6 H (5.0-10.0) 10^3/uL RBC 4.27 (4.2-5.4) 10^6/uL Hgb 10.1 L (12.0-16.0) g/dL Hct 30.9 L (37.0-47.0) % MCV 72.4 L D (80-100) fL MCH 23.7 L (27.0-34.0) pg MCHC 32.7 L (33.0-35.0) g/dL Plt Count 409 (150-450) 10^3/uL Neut % (Auto) 64.1 (42.2-75.2) % Lymph % (Auto) 27.7 (20.5-50.1) % [place] % (Auto) 7.5 (2-8) % Eos % (Auto) 0.6 L (1.0-3.0) % Baso % (Auto) 0.1 (0.0-1.0) % Sodium (135-145) mmol/L Potassium (3.6-5.0) mmol/L Chloride (101-111) mmol/L Carbon Dioxide (21.0-31.0) mmol/L Anion Gap BUN (7-18) mg/dL Creatinine (0.6-1.3) mg/dL Est Cr Clr Drug Dosing mL/min Estimated GFR (MDRD) BUN/Creatinine Ratio Glucose (74-105) mg/dL Calcium (8.4-10.2) mg/dl Total Bilirubin (0.2-1.0) mg/dL AST (10-42) IU/L ALT (10-60) IU/L Alkaline Phosphatase (42-121) IU/L Total Protein (6.7-8.2) g/dl Albumin (3.2-5.5) g/dl Globulin Albumin/Globulin Ratio Amylase (28-100) U/L Lipase (22-51) U/L Urine Color Yellow (YELLOW) Urine Appearance Slightly cloudy (CLEAR) Urine pH 6.0 (5.0-9.0) Ur Specific [place] 1.025 (1.005-1.030) Urine Protein Negative (NEGATIVE) Urine Glucose (UA) Negative (NEGATIVE) Urine Ketones Negative (NEGATIVE) Urine Occult Blood Small H (NEGATIVE) Urine Nitrite Negative (NEGATIVE) Urine Bilirubin Negative (NEGATIVE) Urine Urobilinogen 1.0 (0.2-1.0) mg/dL Ur Leukocyte Esterase Small H (NEGATIVE) Urine RBC 0-5 /HPF Urine WBC 20-30 H (0-5/HPF) /HPF Ur Epithelial Cells Many H (NOT SEEN) /HPF Urine Bacteria Many H (0-FEW/HPF) /HPF Urine Other See note Urine Yeast Few H (NOT SEEN) /HPF Urine Opiates Screen Negative (NEGATIVE) Ur Oxycodone Screen Negative (NEGATIVE) Urine Methadone Screen Negative (NEGATIVE) Ur Barbiturates Screen Negative (NEGATIVE) U Tricyclic Antidepress Negative (NEGATIVE) Ur Phencyclidine Scrn Negative (NEGATIVE) Ur Amphetamine Screen Negative (NEGATIVE) U Methamphetamines Scrn Negative (NEGATIVE) Urine MDMA Screen Negative (NEGATIVE) U Benzodiazepines Scrn Negative (NEGATIVE) Urine Cocaine Screen Negative (NEGATIVE) U Marijuana (THC) Screen Negative (NEGATIVE) 06/22/18 Range/Units 23:00 WBC (5.0-10.0) 10^3/uL RBC (4.2-5.4) 10^6/uL Hgb (12.0-16.0) g/dL Hct (37.0-47.0) % MCV (80-100) fL MCH (27.0-34.0) pg MCHC (33.0-35.0) g/dL Plt Count (150-450) 10^3/uL Neut % (Auto) (42.2-75.2) % Lymph % (Auto) (20.5-50.1) % [place] % (Auto) (2-8) % Eos % (Auto) (1.0-3.0) % Baso % (Auto) (0.0-1.0) % Sodium 132 L D (135-145) mmol/L Potassium 3.5 L (3.6-5.0) mmol/L Chloride 105 (101-111) mmol/L Carbon Dioxide 17.0 L (21.0-31.0) mmol/L Anion Gap 13.5 BUN 9 (7-18) mg/dL Creatinine 0.5 L (0.6-1.3) mg/dL Est Cr Clr Drug Dosing 161.50 mL/min Estimated GFR (MDRD) > 60 BUN/Creatinine Ratio 18.00 Glucose 82 (74-105) mg/dL Calcium 8.6 (8.4-10.2) mg/dl Total Bilirubin 0.6 (0.2-1.0) mg/dL AST 21 (10-42) IU/L ALT 30 (10-60) IU/L Alkaline Phosphatase 136 H (42-121) IU/L Total Protein 7.3 (6.7-8.2) g/dl Albumin 3.2 (3.2-5.5) g/dl Globulin 4.1 Albumin/Globulin Ratio 0.78 Amylase 91 (28-100) U/L Lipase 31 (22-51) U/L Urine Color (YELLOW) Urine Appearance (CLEAR) Urine pH (5.0-9.0) Ur Specific [place] (1.005-1.030) Urine Protein (NEGATIVE) Urine Glucose (UA) (NEGATIVE) Urine Ketones (NEGATIVE) Urine Occult Blood (NEGATIVE) Urine Nitrite (NEGATIVE) Urine Bilirubin (NEGATIVE) Urine Urobilinogen (0.2-1.0) mg/dL Ur Leukocyte Esterase (NEGATIVE) Urine RBC /HPF Urine WBC (0-5/HPF) /HPF Ur Epithelial Cells (NOT SEEN) /HPF Urine Bacteria (0-FEW/HPF) /HPF Urine Other Urine Yeast (NOT SEEN) /HPF Urine Opiates Screen (NEGATIVE) Ur Oxycodone Screen (NEGATIVE) Urine Methadone Screen (NEGATIVE) Ur Barbiturates Screen (NEGATIVE) U Tricyclic Antidepress (NEGATIVE) Ur Phencyclidine Scrn (NEGATIVE) Ur Amphetamine Screen (NEGATIVE) U Methamphetamines Scrn (NEGATIVE) Urine MDMA Screen (NEGATIVE) U Benzodiazepines Scrn (NEGATIVE) Urine Cocaine Screen (NEGATIVE) U Marijuana (THC) Screen (NEGATIVE) Meds: Medications Discontinued Medications Generic Name Dose Route Start Last Admin Trade Name Alem PRN Reason Stop Dose Admin Hydroxyzine HCl 50 mg 06/22/18 22:48 06/22/18 22:54 Atarax PO 06/22/18 22:49 50 mg ONETIME ONE Administration - Re-Assessments/Exams Free Text/Narrative Re-Assessment/Exam: 06/22/18 23:56 results discussed with pt who is feeling good presently s/p atarax Departure - Departure Time of Disposition: 23:56 Disposition: Home, Self-Care 01 Condition: Good Clinical Impression: Abdominal pain Qualifiers: Abdominal location: right upper quadrant Qualified Code(s): R10.11 - Right upper quadrant pain - Discharge Information Forms: ED Department Discharge Additional Instructions: 1) rest 2) avoid bending lifting straining next 48 hours 3) follow up at clinic - My Orders Last 24 Hours: My Active Orders 06/22/18 22:40 CULTURE URINE [RM] Stat - Assessment/Plan Last 24 Hours: My Active Orders 06/22/18 22:40 CULTURE URINE [RM] Stat
[2018-06-22] MEDS: hydrOXYzine HCl 25 MG Tab PO ONE (22:54)
[2018-06-22 23:32] LABS: ANION GAP 13.5; CHLORIDE,CL 105 mmol/L (101-111); SODIUM,NA 132 mmol/L (135-145)
== END 2018-06-23 00:04 | disposition home or self-care (01) ==
LOC: DL.ED 22:30
DX: O99.89 Other specified diseases and conditions complicating pregnancy, childbirth and the puerperium (principal); R10.11 Right upper quadrant pain; Z79.899 Other long term (current) drug therapy; W19.XXXA Unspecified fall, initial encounter
CPT/HCPCS: 36415; 80053; 80305; 81001; 82150; 83690; 85025; 87086; 99284; A9270

== ENCOUNTER 2019-01-15 15:57 | Emergency (ER) | payer MEDICAID ==
[2019-01-15 16:22] VITALS: BP 110/79; PULSE 92
--- NOTE | 2019-01-15 16:22 | EDM.PDOC ---
ED HPI GENERAL MEDICAL PROBLEM - General Chief Complaint: General Stated Complaint: COUGH Time Seen by Provider: 01/15/19 16:05 Source of Information: Reports: Patient History Limitations: Reports: No Limitations - History of Present Illness INITIAL COMMENTS - FREE TEXT/NARRATIVE: This 23 yo female patient reports to the ED with a stuffy nose, nighttime cough and 2 days of diarrhea. The patient reports she has been having loose bowel movements every 5 minutes since yesterday. The patient reports she was just at the clinic with her son, but did not get an appointment. The patient took 1 dose of Pepto, but has continued to have loose bowel movements. The patient has not taken anything for her stuffy nose or nighttime cough. Duration: Day(s):, Constant Location: Reports: Other Quality: Reports: Other Severity: Moderate Improves with: Reports: None Worsens with: Reports: None Context: Reports: Other Associated Symptoms: Reports: No Other Symptoms - Related Data Allergies Allergy/AdvReac Type Severity Reaction Status Date / Time No Known Allergies Allergy Verified 10/21/18 09:07 Past Medical History - Past Health History Medical/Surgical History: Denies Medical/Surgical History HEENT History: Reports: None Cardiovascular History: Reports: None Respiratory History: Reports: None Gastrointestinal History: Reports: Other (See Below) 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 Genitourinary History: Reports: None 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: , Other (See Below) Other PATTERN FILER History: yeast infections 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 History: Reports: None Neurological History: Reports: None Psychiatric History: Reports: Depression Endocrine/Metabolic History: Reports: None Hematologic History: Reports: Anemia Immunologic History: Reports: None Oncologic (Cancer) History: Reports: None Dermatologic History: Reports: None - Infectious Disease History Infectious Disease History: Reports: None - Past Surgical History Head Surgeries/Procedures: Reports: None GI Surgical History: Reports: None Oncologic Surgical History: Reports: None Social & Family History - Family History Family Medical History: Noncontributory - Caffeine Use Caffeine Use: Reports: Soda ED ROS GENERAL - Review of Systems Review Of Systems: Comprehensive ROS is negative, except as noted in HPI. ED EXAM, GENERAL - Physical Exam Exam: See Below Exam Limited By: No Limitations General Appearance: Alert, WD/WN, No Apparent Distress Eye Exam: Bilateral Eye: EOMI, Normal Inspection, PERRL Ears: Normal External Exam, Normal Canal, Hearing Grossly Normal, Normal TMs Nose: Normal Inspection, Normal Mucosa, No Blood Throat/Mouth: Normal Inspection, Normal Lips, Normal Teeth, Normal Gums, Normal Oropharynx, Normal Voice, No Airway Compromise Head: Atraumatic, Normocephalic Neck: Normal Inspection, Supple, Non-Tender, Full Range of Motion Respiratory/Chest: No Respiratory Distress, Lungs Clear, Normal Breath Sounds, No Accessory Muscle Use, Chest Non-Tender Cardiovascular: Normal Peripheral Pulses, Regular Rate, Rhythm, No Edema, No Gallop, No JVD, No Murmur, No Rub GI/Abdominal: Normal Bowel Sounds, Soft, Non-Tender, No Organomegaly, No Distention, No Abnormal Bruit, No Mass (Female) Exam: Deferred Rectal (Female) Exam: Deferred Back Exam: Normal Inspection, Full Range of Motion, NT Extremities: Normal Inspection, Normal Range of Motion, Non-Tender, Normal Capillary Refill, No Pedal Edema Neurological: Alert Psychiatric: Normal Affect, Normal Mood Skin Exam: Warm, Dry, Intact, Normal Color, No Rash Lymphatic: No Adenopathy Course - Vital Signs Last Recorded V/S: Last Vital Signs Temp 36.2 C 01/15/19 16:16 Pulse 92 01/15/19 16:16 Resp 16 01/15/19 16:16 BP 110/79 01/15/19 16:16 Pulse Ox 99 01/15/19 16:16 - Orders/Labs/Meds Labs: Laboratory Tests 01/15/19 01/15/19 Range/Units 16:18 16:18 WBC 11.6 H (5.0-10.0) 10^3/uL RBC 5.02 (4.2-5.4) 10^6/uL Hgb 11.4 L D (12.0-16.0) g/dL Hct 35.5 L (37.0-47.0) % MCV 70.7 L (80-100) fL MCH 22.7 L (27.0-34.0) pg MCHC 32.1 L (33.0-35.0) g/dL Plt Count 486 H (150-450) 10^3/uL Neut % (Auto) 79.1 H (42.2-75.2) % Lymph % (Auto) 13.8 L (20.5-50.1) % [place] % (Auto) 5.8 (2-8) % Eos % (Auto) 1.1 (1.0-3.0) % Baso % (Auto) 0.2 (0.0-1.0) % Sodium 136 (135-145) mmol/L Potassium 3.7 (3.6-5.0) mmol/L Chloride 107 (101-111) mmol/L Carbon Dioxide 19.0 L (21.0-31.0) mmol/L Anion Gap 13.7 BUN 14 (7-18) mg/dL Creatinine 0.8 (0.6-1.3) mg/dL Est Cr Clr Drug Dosing 100.10 mL/min Estimated GFR (MDRD) > 60 BUN/Creatinine Ratio 17.50 Glucose 103 (74-105) mg/dL Calcium 9.1 (8.4-10.2) mg/dl Total Bilirubin 0.5 (0.2-1.0) mg/dL AST 21 (10-42) IU/L ALT 31 (10-60) IU/L Alkaline Phosphatase 114 (42-121) IU/L Total Protein 9.1 H (6.7-8.2) g/dl Albumin 4.5 (3.2-5.5) g/dl Globulin 4.6 Albumin/Globulin Ratio 0.98 Departure - Departure Time of Disposition: 17:04 Disposition: Home, Self-Care 01 Condition: Fair Clinical Impression: Viral gastroenteritis - Discharge Information *PRESCRIPTION DRUG MONITORING PROGRAM REVIEWED*: Not Applicable *COPY OF PRESCRIPTION DRUG MONITORING REPORT IN PATIENT [place]: Not Applicable Instructions: Viral Gastroenteritis, Adult, [id number] Forms: ED Department Discharge Care Plan Goals: The patient was advised of the examination and lab results during the visit. The patient was encouraged to stick to a BRAT diet (bananas, rice, applesauce and toast) with small frequent sips of fluid. The patient may take over the counter medications for temporary symptoms relief. If the patient has any additional symptoms or concerns, the patient should either return to the emergency department or visit her primary care facility.
[2019-01-15 16:59] LABS: ANION GAP 13.7; CHLORIDE,CL 107 mmol/L (101-111); SODIUM,NA 136 mmol/L (135-145)
== END 2019-01-15 17:15 | disposition home or self-care (01) ==
LOC: DL.ED 15:57
DX: A08.4 Viral intestinal infection, unspecified (principal)
CPT/HCPCS: 36415; 80053; 85025; 99284

== ENCOUNTER 2019-05-19 23:43 | Emergency (ER) | payer MEDICAID, OTHER ==
[2019-05-19 23:53] VITALS: BP 131/76; PULSE 105
--- NOTE | 2019-05-20 00:05 | EDM.PDOC ---
ED HPI GENERAL MEDICAL PROBLEM - General Chief Complaint: General Stated Complaint: CHILLS, ACHES, THROWING UP, RIGHT THROAT HURTS Time Seen by Provider: 05/20/19 00:04 Source of Information: Reports: Patient History Limitations: Reports: No Limitations - History of Present Illness INITIAL COMMENTS - FREE TEXT/NARRATIVE: onset sore throat last night also had fever too. not any better tonight with body aching. Right Throat Pain Score (Numeric/FACES): 9 - Related Data Allergies Allergy/AdvReac Type Severity Reaction Status Date / Time No Known Allergies Allergy Verified 05/19/19 23:50 Home Meds: Home Meds . 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 Genitourinary History: Reports: None RECORDS MANAGER History: Reports: , Other (See Below) Other RECORDS MANAGER History: yeast infections 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 History: Reports: None Neurological History: Reports: None Psychiatric History: Reports: Depression Endocrine/Metabolic History: Reports: None Hematologic History: Reports: Anemia Immunologic History: Reports: None Oncologic (Cancer) History: Reports: None Dermatologic History: Reports: None - Infectious Disease History Infectious Disease History: Reports: None - Past Surgical History Head Surgeries/Procedures: Reports: None GI Surgical History: Reports: None Oncologic Surgical History: Reports: None Social & Family History - Family History Family Medical History: Noncontributory - Tobacco Use Smoking Status *Q: Never Smoker Second Hand Smoke Exposure: No - Caffeine Use Caffeine Use: Reports: None - Recreational Drug Use Recreational Drug Use: No ED ROS GENERAL - Review of Systems Review Of Systems: Comprehensive ROS is negative, except as noted in HPI. ED EXAM, GENERAL - Physical Exam Exam: See Below Exam Limited By: No Limitations General Appearance: Alert, WD/WN, No Apparent Distress Ears: Hearing Grossly Normal Throat/Mouth: Normal Voice, No Airway Compromise, Inflammation Head: Atraumatic Neck: Non-Tender, Full Range of Motion Respiratory/Chest: No Respiratory Distress Cardiovascular: Regular Rate, Rhythm GI/Abdominal: Soft, Non-Tender Neurological: Alert, Oriented, Normal Cognition, Normal Gait, No Motor/Sensory Deficits Psychiatric: Normal Affect, Normal Mood Skin Exam: Warm, Dry, Normal Color Lymphatic: No Adenopathy Course - Vital Signs Last Recorded V/S: Last Vital Signs Temp 36.5 C 05/19/19 23:51 Pulse 105 H 05/19/19 23:51 Resp 16 05/19/19 23:51 BP 131/76 05/19/19 23:51 Pulse Ox 98 05/19/19 23:51 - Orders/Labs/Meds Orders: Active Orders 24 hr Category Date Time Status INFLUENZA A+B AG SCREEN [RM] Stat Lab 05/19/19 23:50 Received Amoxicillin [Amoxil] Med 05/20/19 00:12 Once 500 mg PO ONETIME ONE Isolation [COMM] Routine Oth 05/19/19 23:54 Active - Re-Assessments/Exams Free Text/Narrative Re-Assessment/Exam: 05/20/19 00:12 results discussed with pt. Departure - Departure Time of Disposition: 00:12 Disposition: Home, Self-Care 01 Condition: Good Clinical Impression: Streptococcal tonsillopharyngitis - Discharge Information Instructions: Strep Throat, [id number] Forms: ED Department Discharge Additional Instructions: 1) soft diet 2) avoid solid foods 3) take tylenol or motrin for fever rx given; amox 250mg tid x 30 Sepsis Event Note - Evaluation Sepsis Screening Result: No Definite Risk - Focused Exam Vital Signs: Vital Signs Temp Pulse Resp BP Pulse Ox 05/19/19 23:51 36.5 C 105 H 16 131/76 98 Date Exam was Performed: 05/20/19 Time Exam was Performed: 00:12 - My Orders Last 24 Hours: My Active Orders 05/19/19 23:50 INFLUENZA A+B AG SCREEN [RM] Stat 05/19/19 23:54 Isolation [COMM] Routine 05/20/19 00:12 Amoxicillin [Amoxil] 500 mg PO ONETIME ONE - Assessment/Plan Last 24 Hours: My Active Orders 05/19/19 23:50 INFLUENZA A+B AG SCREEN [RM] Stat 05/19/19 23:54 Isolation [COMM] Routine 05/20/19 00:12 Amoxicillin [Amoxil] 500 mg PO ONETIME ONE
[2019-05-20] MEDS ORDERED: Amoxicillin 500 MG Cap PO ONE (00:12)
== END 2019-05-20 00:17 | disposition home or self-care (01) ==
LOC: DL.ED 23:43
DX: J03.00 Acute streptococcal tonsillitis, unspecified (principal)
CPT/HCPCS: 87430; 87804; 99283; A9270

== ENCOUNTER 2019-08-16 08:46 | Emergency (ER) | payer MEDICAID, OTHER, SELFPAY ==
--- NOTE | 2019-08-16 09:23 | EDM.PDOC ---
ED HPI GENERAL MEDICAL PROBLEM - General Chief Complaint: Abdominal Pain Stated Complaint: ABD/HEADACHE/CHILLS Time Seen by Provider: 08/16/19 09:05 Source of Information: Reports: Patient History Limitations: Reports: No Limitations - History of Present Illness INITIAL COMMENTS - FREE TEXT/NARRATIVE: This 23 yo female patient reports to the ED with right upper quadrant abdominal pain and a headache that started last night. The patient reports she did take Tylenol at 0100 with no changes in her symptoms. The patient reports she had spaghetti last night prior to symptom onset. The patient reports she attempted to get into the clinic, but could not get an appointment until tomorrow. The patient reports she was advised that she had gallbladder problems with her last , but has not followed up since the . 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 Genitourinary History: Reports: None ORDER ENTRY REPRESENTATIVE History: Reports: , Other (See Below) Other ORDER ENTRY REPRESENTATIVE History: yeast infections 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 History: Reports: None Neurological History: Reports: None Psychiatric History: Reports: Depression Endocrine/Metabolic History: Reports: None Hematologic History: Reports: Anemia Immunologic History: Reports: None Oncologic (Cancer) History: Reports: None Dermatologic History: Reports: None - Infectious Disease History Infectious Disease History: Reports: None - Past Surgical History Head Surgeries/Procedures: Reports: None GI Surgical History: Reports: None Oncologic Surgical History: Reports: None Social & Family History - Family History Family Medical History: Noncontributory - Tobacco Use Smoking Status *Q: Never Smoker Second Hand Smoke Exposure: No - Caffeine Use Caffeine Use: Reports: Soda - Recreational Drug Use Recreational Drug Use: No ED ROS GENERAL - Review of Systems Review Of Systems: Comprehensive ROS is negative, except as noted in HPI. ED EXAM, GI/ABD - Physical Exam Exam: See Below Exam Limited By: No Limitations General Appearance: Alert, WD/WN, Mild Distress Eyes: Bilateral: Normal Appearance, EOMI Ears: Normal External Exam, Normal Canal, Hearing Grossly Normal, Normal TMs Nose: Normal Inspection, Normal Mucosa, No Blood Throat/Mouth: Normal Inspection, Normal Lips, Normal Teeth, Normal Gums, Normal Oropharynx, Normal Voice, No Airway Compromise Head: Atraumatic, Normocephalic Neck: Normal Inspection, Supple, Non-Tender, Full Range of Motion Respiratory/Chest: No Respiratory Distress, Lungs Clear, Normal Breath Sounds, No Accessory Muscle Use, Chest Non-Tender Cardiovascular: Normal Peripheral Pulses, Regular Rate, Rhythm, No Edema, No Gallop, No JVD, No Murmur, No Rub GI/Abdominal Exam: Normal Bowel Sounds, Soft, No Organomegaly, No Distention, No Abnormal Bruit, No Mass, Pelvis Stable, Tender (RUQ) (Female) Exam: Deferred Rectal (Female) Exam: Deferred Back Exam: Normal Inspection, Full Range of Motion, NT Extremities: Normal Inspection, Normal Range of Motion, Non-Tender, Normal Capillary Refill, No Pedal Edema Neurological: Alert, Oriented, CN II-XII Intact, Normal Cognition, Normal Gait, Normal Reflexes, No Motor/Sensory Deficits Psychiatric: Normal Affect, Normal Mood Skin Exam: Warm, Dry, Intact, Normal Color, No Rash Lymphatic: No Adenopathy Course - Vital Signs Last Recorded V/S: Last Vital Signs Temp 36.9 C 08/16/19 08:55 Pulse 97 08/16/19 08:55 Resp 16 08/16/19 08:55 BP 119/67 08/16/19 08:55 Pulse Ox 98 08/16/19 08:55 - Orders/Labs/Meds Orders: Active Orders 24 hr Category Date Time Status CULTURE URINE [RM] Stat Lab 08/16/19 09:30 Received Labs: Laboratory Tests 08/16/19 08/16/19 08/16/19 Range/Units 09:23 09:23 09:30 WBC 9.6 (5.0-10.0) 10^3/uL RBC 4.61 (4.2-5.4) 10^6/uL Hgb 10.3 L (12.0-16.0) g/dL Hct 32.7 L (37.0-47.0) % MCV 70.9 L (80-100) fL MCH 22.3 L (27.0-34.0) pg MCHC 31.5 L (33.0-35.0) g/dL Plt Count 456 H (150-450) 10^3/uL Neut % (Auto) 71.6 (42.2-75.2) % Lymph % (Auto) 18.5 L (20.5-50.1) % Dawes % (Auto) 8.4 H (2-8) % Eos % (Auto) 1.4 (1.0-3.0) % Baso % (Auto) 0.1 (0.0-1.0) % Sodium 136 (136-145) mmol/L Potassium 3.4 L (3.5-5.1) mmol/L Chloride 104 (98-107) mmol/L Carbon Dioxide 23 (21-32) mmol/L Anion Gap 12.4 (7-13) mEq/L BUN 12 (7-18) mg/dL Creatinine 0.72 (0.55-1.02) mg/dL Est Cr Clr Drug Dosing 111.22 mL/min Estimated GFR (MDRD) > 60 BUN/Creatinine Ratio 16.7 (No establ ref range) Glucose 103 H (74-99) mg/dL Calcium 8.3 L (8.5-10.1) mg/dL Total Bilirubin 0.3 (0.2-1.0) mg/dL AST 12 L (15-37) U/L ALT 27 (14-59) U/L Alkaline Phosphatase 135 H (46-116) U/L Total Protein 8.2 (6.4-8.2) g/dL Albumin 3.4 (3.4-5.0) g/dL Globulin 4.8 Albumin/Globulin Ratio 0.7 Amylase 46 (25-115) U/L Lipase 92 (73-393) U/L Urine Color Yellow (YELLOW) Urine Appearance Clear (CLEAR) Urine pH 5.5 (5.0-9.0) Ur Specific Bristow >= 1.030 (1.005-1.030) Urine Protein Negative (NEGATIVE) Urine Glucose (UA) Negative (NEGATIVE) Urine Ketones Negative (NEGATIVE) Urine Occult Blood Moderate H (NEGATIVE) Urine Nitrite Negative (NEGATIVE) Urine Bilirubin Negative (NEGATIVE) Urine Urobilinogen 0.2 (0.2-1.0) mg/dL Ur Leukocyte Esterase Trace H (NEGATIVE) Urine RBC 5-10 H /HPF Urine WBC 0-5 (0-5/HPF) /HPF Ur Epithelial Cells Few (NOT SEEN) /HPF Urine Bacteria Few (0-FEW/HPF) /HPF Urine Mucus Few H (NOT SEEN) /LPF Urinalysis Comment See note Urine HCG, Qual Urine Opiates Screen (NEGATIVE) Ur Oxycodone Screen (NEGATIVE) Urine Methadone Screen (NEGATIVE) Ur Barbiturates Screen (NEGATIVE) U Tricyclic Antidepress (NEGATIVE) Ur Phencyclidine Scrn (NEGATIVE) Ur Amphetamine Screen (NEGATIVE) U Methamphetamines Scrn (NEGATIVE) Urine MDMA Screen (NEGATIVE) U Benzodiazepines Scrn (NEGATIVE) Urine Cocaine Screen (NEGATIVE) U Marijuana (THC) Screen (NEGATIVE) 08/16/19 08/16/19 Range/Units 09:30 09:30 WBC (5.0-10.0) 10^3/uL RBC (4.2-5.4) 10^6/uL Hgb (12.0-16.0) g/dL Hct (37.0-47.0) % MCV (80-100) fL MCH (27.0-34.0) pg MCHC (33.0-35.0) g/dL Plt Count (150-450) 10^3/uL Neut % (Auto) (42.2-75.2) % Lymph % (Auto) (20.5-50.1) % Dawes % (Auto) (2-8) % Eos % (Auto) (1.0-3.0) % Baso % (Auto) (0.0-1.0) % Sodium (136-145) mmol/L Potassium (3.5-5.1) mmol/L Chloride (98-107) mmol/L Carbon Dioxide (21-32) mmol/L Anion Gap (7-13) mEq/L BUN (7-18) mg/dL Creatinine (0.55-1.02) mg/dL Est Cr Clr Drug Dosing mL/min Estimated GFR (MDRD) BUN/Creatinine Ratio (No establ ref range) Glucose (74-99) mg/dL Calcium (8.5-10.1) mg/dL Total Bilirubin (0.2-1.0) mg/dL AST (15-37) U/L ALT (14-59) U/L Alkaline Phosphatase (46-116) U/L Total Protein (6.4-8.2) g/dL Albumin (3.4-5.0) g/dL Globulin Albumin/Globulin Ratio Amylase (25-115) U/L Lipase (73-393) U/L Urine Color (YELLOW) Urine Appearance (CLEAR) Urine pH (5.0-9.0) Ur Specific Bristow (1.005-1.030) Urine Protein (NEGATIVE) Urine Glucose (UA) (NEGATIVE) Urine Ketones (NEGATIVE) Urine Occult Blood (NEGATIVE) Urine Nitrite (NEGATIVE) Urine Bilirubin (NEGATIVE) Urine Urobilinogen (0.2-1.0) mg/dL Ur Leukocyte Esterase (NEGATIVE) Urine RBC /HPF Urine WBC (0-5/HPF) /HPF Ur Epithelial Cells (NOT SEEN) /HPF Urine Bacteria (0-FEW/HPF) /HPF Urine Mucus (NOT SEEN) /LPF Urinalysis Comment Urine HCG, Qual Negative Urine Opiates Screen Negative (NEGATIVE) Ur Oxycodone Screen Negative (NEGATIVE) Urine Methadone Screen Negative (NEGATIVE) Ur Barbiturates Screen Negative (NEGATIVE) U Tricyclic Antidepress Negative (NEGATIVE) Ur Phencyclidine Scrn Negative (NEGATIVE) Ur Amphetamine Screen Negative (NEGATIVE) U Methamphetamines Scrn Negative (NEGATIVE) Urine MDMA Screen Negative (NEGATIVE) U Benzodiazepines Scrn Negative (NEGATIVE) Urine Cocaine Screen Negative (NEGATIVE) U Marijuana (THC) Screen Negative (NEGATIVE) Departure - Departure Time of Disposition: 12:27 Disposition: Home, Self-Care 01 Condition: Fair Clinical Impression: Gastroenteritis - Discharge Information *PRESCRIPTION DRUG MONITORING PROGRAM REVIEWED*: Not Applicable *COPY OF PRESCRIPTION DRUG MONITORING REPORT IN PATIENT ROME: Not Applicable Instructions: Viral Gastroenteritis, Adult, [id number] Forms: ED Department Discharge Care Plan Goals: The patient was advised of the examination, lab results and ultrasound results during the visit. The patient was encouraged to stick to a BRAT diet (bananas, rice, applesauce and toast) with small frequent sips of fluid. If the patient has any additional symptoms or concerns, the patient should either return to the emergency department or follow-up with her primary care facility. Sepsis Event Note (ED) - Evaluation Sepsis Screening Result: No Definite Risk - Focused Exam Vital Signs: Vital Signs Temp Pulse Resp BP Pulse Ox 08/16/19 08:55 36.9 C 97 16 119/67 98 - My Orders Last 24 Hours: My Active Orders 08/16/19 09:30 CULTURE URINE [RM] Stat - Assessment/Plan Last 24 Hours: My Active Orders 08/16/19 09:30 CULTURE URINE [RM] Stat
[2019-08-16 09:52] LABS: ANION GAP 12.4 mEq/L (7-13); CHLORIDE,CL 104 mmol/L (98-107); SODIUM,NA 136 mmol/L (136-145)
--- NOTE | 2019-08-16 12:23 | US ---
EXAMINATION: Abdomen Ltd SEX: Female AGE: 23 years CLINICAL HISTORY: 23-year-old female right upper quadrant pain Interpretation: Large (17.8 cm long) homogeneously dense liver RUQ. No discrete intrahepatic cystic or solid mass lesion and no abnormal dilatation of intra or extrahepatic biliary ducts (common hepatic duct 4 mm and the common bile duct 5 mm diameter). Normal reniform size, axis and configuration right kidney. No sign of cortical mass, nephrolithiasis or obstructive uropathy on the right. Expected distention and anatomic configuration gallbladder with uniformly thin wall. No sign of mucosal wall polyp or mobile dependent intraluminal echogenic "shadowing" gallstones. No pericystic fluid or wall edema. Pancreas sonographically unremarkable i.e. normal size, anatomic configuration and homogeneous density. No pancreatic mass lesion, major pancreatic duct dilatation or peripancreatic fluid collections. No ascites. CONCLUSION: Mildly enlarged liver. Negative gallbladder and epigastric sonogram.
[2019-08-16 12:52] VITALS: BP 119/70; PULSE 86
== END 2019-08-16 12:33 | disposition home or self-care (01) ==
LOC: DL.ED 08:46
DX: K52.9 Noninfective gastroenteritis and colitis, unspecified (principal)
CPT/HCPCS: 36415; 76705; 80053; 80305-QW; 81001; 81025; 82150; 83690; 85025; 87086; 99284-25

== ENCOUNTER 2019-10-07 19:58 | Emergency (ER) | payer MEDICAID ==
[2019-10-07 20:09] VITALS: BP 130/77; PULSE 77
[2019-10-07] MEDS ORDERED: Sulfamethoxazole/Trimethoprim 800-160 MG Tab PO ONE (21:25)
[2019-10-07] MEDS ORDERED: Phenazopyridine 95 MG Tab PO ONE (21:25)
--- NOTE | 2019-10-07 21:28 | EDM.PDOC ---
ED HPI GENERAL MEDICAL PROBLEM - General Chief Complaint: Genitourinary Problem Stated Complaint: UTI PER PT Time Seen by Provider: 10/07/19 21:26 Source of Information: Reports: Patient History Limitations: Reports: No Limitations - History of Present Illness INITIAL COMMENTS - FREE TEXT/NARRATIVE: Sx started this am not getting better. Vaginal Pain Score (Numeric/FACES): 5 - Related Data Allergies Allergy/AdvReac Type Severity Reaction Status Date / Time No Known Allergies Allergy Verified 08/16/19 09:00 Home Meds: Home Meds . 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 Genitourinary History: Reports: None HIDE CURER History: Reports: , Other (See Below) Other HIDE CURER History: yeast infections 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 History: Reports: None Neurological History: Reports: None Psychiatric History: Reports: Depression Endocrine/Metabolic History: Reports: None Hematologic History: Reports: Anemia Immunologic History: Reports: None Oncologic (Cancer) History: Reports: None Dermatologic History: Reports: None - Infectious Disease History Infectious Disease History: Reports: None - Past Surgical History Head Surgeries/Procedures: Reports: None GI Surgical History: Reports: None Oncologic Surgical History: Reports: None Social & Family History - Family History Family Medical History: Noncontributory - Tobacco Use Smoking Status *Q: Never Smoker Second Hand Smoke Exposure: No - Caffeine Use Caffeine Use: Reports: Coffee - Recreational Drug Use Recreational Drug Use: No ED ROS GENERAL - Review of Systems Review Of Systems: Comprehensive ROS is negative, except as noted in HPI. ED EXAM, RENAL/ - Physical Exam Exam: See Below Exam Limited By: No Limitations General Appearance: Alert, WD/WN, Mild Distress, Other (discomfort). No: Active Emesis Ears: Hearing Grossly Normal Throat/Mouth: Normal Voice, No Airway Compromise Head: Atraumatic Neck: Non-Tender, Full Range of Motion Respiratory/Chest: No Respiratory Distress Cardiovascular: Regular Rate, Rhythm GI/Abdominal: Soft, Non-Tender Neurological: Alert, Oriented, Normal Cognition, Normal Gait, No Motor/Sensory Deficits Psychiatric: Flat Affect Skin Exam: Warm, Dry, Normal Color Lymphatic: No Adenopathy Course - Vital Signs Last Recorded V/S: Last Vital Signs Temp 35.7 C L 10/07/19 20:02 Pulse 77 10/07/19 20:02 Resp 16 10/07/19 20:02 BP 130/77 10/07/19 20:02 Pulse Ox 99 10/07/19 20:02 - Orders/Labs/Meds Orders: Active Orders 24 hr Category Date Time Status UA RFX MACY AND CULT IF INDIC [URIN] Stat Lab 10/07/19 20:00 Received Phenazopyridine [Urinary Pain Relief] Med 10/07/19 21:25 Once 95 mg PO ONETIME ONE Sulfamethoxazole/Trimethoprim [Septra DS] Med 10/07/19 21:25 Once 1 tab PO ONETIME ONE Departure - Departure Time of Disposition: 21:27 Disposition: Home, Self-Care 01 Condition: Good Clinical Impression: UTI, Urinary tract infectious disease - Discharge Information Instructions: Urinary Tract Infection, Adult, [id number] Additional Instructions: 1) drink lots of liquids 2) follow up at clinic rx given; bactrim DS bid x 20 pyridium 100mg tid prn x 12 Sepsis Event Note (ED) - Evaluation Sepsis Screening Result: No Definite Risk - Focused Exam Vital Signs: Vital Signs Temp Pulse Resp BP Pulse Ox 10/07/19 20:02 35.7 C L 77 16 130/77 99 - My Orders Last 24 Hours: My Active Orders 10/07/19 20:00 UA RFX MACY AND CULT IF INDIC [URIN] Stat 10/07/19 21:25 Phenazopyridine [Urinary Pain Relief] 95 mg PO ONETIME ONE Sulfamethoxazole/Trimethoprim [Septra DS] 1 tab PO ONETIME ONE - Assessment/Plan Last 24 Hours: My Active Orders 10/07/19 20:00 UA RFX MACY AND CULT IF INDIC [URIN] Stat 10/07/19 21:25 Phenazopyridine [Urinary Pain Relief] 95 mg PO ONETIME ONE Sulfamethoxazole/Trimethoprim [Septra DS] 1 tab PO ONETIME ONE
== END 2019-10-07 21:30 | disposition home or self-care (01) ==
LOC: DL.ED 19:58
DX: N39.0 Urinary tract infection, site not specified (principal)
CPT/HCPCS: 99283; A9270

== ENCOUNTER 2019-10-08 20:14 | Emergency (ER) | payer MEDICAID ==
[2019-10-08 21:30] VITALS: BP 125/72; PULSE 69
--- NOTE | 2019-10-08 22:00 | CR ---
PROCEDURE INFORMATION: Exam: XR Right Knee Exam date and time: 10/08/2019 9:35 PM Age: 23 years old Clinical indication: Injury or trauma; Fall; Initial encounter; Abrasion; Knee; Right; Additional info: Fall, pain TECHNIQUE: Imaging protocol: XR Right knee. Views: 3 views. COMPARISON: No relevant prior studies available. FINDINGS: Bones/joints: There is no evidence of acute fracture. There is no evidence of joint malalignment or dislocation. Soft tissues: There are no soft tissue masses or fluid collections. IMPRESSION: 1. No evidence of acute fracture. 2. No evidence of acute dislocation.
--- NOTE | 2019-10-08 22:30 | EDM.PDOC ---
ED HPI GENERAL MEDICAL PROBLEM - General Chief Complaint: Lower Extremity Injury/Pain Stated Complaint: FELL ON RIGHT KNEE GOING DOWN STAIRS Time Seen by Provider: 10/08/19 21:25 Source of Information: Reports: Patient History Limitations: Reports: No Limitations - History of Present Illness INITIAL COMMENTS - FREE TEXT/NARRATIVE: ED with c/o pain to right knee, fell tonight going down stairs on to right knee on carpeted stairs. Increased pain with movment, noprior injury. 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 Genitourinary History: Reports: None 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 SOFTWARE ENGINEER History: Reports: , Other (See Below) Other 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 SOFTWARE ENGINEER History: yeast infections 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 History: Reports: None Neurological History: Reports: None Psychiatric History: Reports: Depression Endocrine/Metabolic History: Reports: None Hematologic History: Reports: Anemia Immunologic History: Reports: None Oncologic (Cancer) History: Reports: None Dermatologic History: Reports: None - Infectious Disease History Infectious Disease History: Reports: None - Past Surgical History Head Surgeries/Procedures: Reports: None GI Surgical History: Reports: None Oncologic Surgical History: Reports: None Social & Family History - Family History Family Medical History: Noncontributory - Tobacco Use Smoking Status *Q: Never Smoker - Caffeine Use Caffeine Use: Reports: Coffee - Recreational Drug Use Recreational Drug Use: No Review of Systems - Review of Systems Review Of Systems: Comprehensive ROS is negative, except as noted in HPI. ED EXAM, GENERAL - Physical Exam Exam: See Below Exam Limited By: No Limitations General Appearance: Alert, Anxious, Mild Distress, Obese Eye Exam: Bilateral Eye: PERRL Ears: Normal External Exam, Hearing Grossly Normal Nose: Normal Inspection Throat/Mouth: Normal Inspection Head: Atraumatic, Normocephalic Neck: Normal Inspection Respiratory/Chest: No Respiratory Distress, Normal Breath Sounds Cardiovascular: Normal Peripheral Pulses, Regular Rate, Rhythm Extremities: Joint Swelling (minimal no crepitus), Limited Range of Motion (right knee) Neurological: Alert, Oriented, No Motor/Sensory Deficits Skin Exam: Warm, Dry, Intact, Normal Color. No: Erythema Course - Vital Signs Last Recorded V/S: Last Vital Signs Temp 98.4 F 10/08/19 21:09 Pulse 69 10/08/19 21:09 Resp 16 10/08/19 21:09 BP 125/72 10/08/19 21:09 Pulse Ox 100 10/08/19 21:09 Departure - Departure Time of Disposition: 22:28 Disposition: Home, Self-Care 01 Condition: Good Clinical Impression: Sprain of right knee Fall Qualifiers: Encounter type: initial encounter Qualified Code(s): W19.XXXA - Unspecified fall, initial encounter - Discharge Information *PRESCRIPTION DRUG MONITORING PROGRAM REVIEWED*: No *COPY OF PRESCRIPTION DRUG MONITORING REPORT IN PATIENT R[place]: No Instructions: Crutch Use, Adult, [id number], Knee Sprain, Adult Forms: ED Department Discharge Additional Instructions: alternate tylenol 650mg and ibuprofen 600mg every 4 hours as needed for discomfort ice elevate tariq wrap crutches weight bearing as tolerated follow up clinic later this week if not improving Sepsis Event Note (ED) - Evaluation Sepsis Screening Result: No Definite Risk - Focused Exam Vital Signs: Vital Signs Temp Pulse Resp BP Pulse Ox 10/08/19 21:09 98.4 F 69 16 125/72 100
== END 2019-10-08 22:37 | disposition home or self-care (01) ==
LOC: DL.ED 20:14
DX: S83.91XA Sprain of unspecified site of right knee, initial encounter (principal); W10.9XXA Fall (on) (from) unspecified stairs and steps, initial encounter
CPT/HCPCS: 73562-RT; 99283-25

== ENCOUNTER 2019-10-22 22:17 | Emergency (ER) | payer MEDICAID, OTHER ==
[2019-10-22 23:27] VITALS: BP 146/80; PULSE 94
--- NOTE | 2019-10-23 00:22 | EDM.PDOC ---
ED HPI GENERAL MEDICAL PROBLEM - General Chief Complaint: General Stated Complaint: BODY ACHES, HOT AND COLD, COUGH Time Seen by Provider: 10/22/19 22:20 Source of Information: Reports: Patient History Limitations: Reports: No Limitations - History of Present Illness INITIAL COMMENTS - FREE TEXT/NARRATIVE: ED with c/o general body aches and chills. No cough, no SOB, No sore throat, No vomiting or diarrhea. No known exposure to COVID. Works at [employer]. 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 Genitourinary History: Reports: None 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: , 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 (See Below) 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: yeast infections 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 History: Reports: None Neurological History: Reports: None Psychiatric History: Reports: Depression Endocrine/Metabolic History: Reports: None Hematologic History: Reports: Anemia Immunologic History: Reports: None Oncologic (Cancer) History: Reports: None Dermatologic History: Reports: None - Infectious Disease History Infectious Disease History: Reports: None - Past Surgical History Head Surgeries/Procedures: Reports: None GI Surgical History: Reports: None Oncologic Surgical History: Reports: None Social & Family History - Family History Family Medical History: Noncontributory - Tobacco Use Smoking Status *Q: Never Smoker Second Hand Smoke Exposure: No - Caffeine Use Caffeine Use: Reports: Coffee - Recreational Drug Use Recreational Drug Use: No ED ROS GENERAL - Review of Systems Review Of Systems: Comprehensive ROS is negative, except as noted in HPI. ED EXAM, GENERAL - Physical Exam Exam: See Below Exam Limited By: No Limitations General Appearance: Alert, No Apparent Distress Eye Exam: Bilateral Eye: EOMI Ears: Normal External Exam, Hearing Grossly Normal, Normal TMs Nose: Normal Inspection Throat/Mouth: Normal Inspection Head: Atraumatic, Normocephalic Neck: Normal Inspection Respiratory/Chest: No Respiratory Distress, Lungs Clear, Normal Breath Sounds Cardiovascular: Normal Peripheral Pulses, Regular Rate, Rhythm GI/Abdominal: Normal Bowel Sounds, Soft Extremities: Normal Inspection Neurological: Alert, Oriented Psychiatric: Normal Affect Skin Exam: Warm, Dry, Intact, Normal Color Course - Vital Signs Last Recorded V/S: Last Vital Signs Temp 98.1 F 10/22/19 23:22 Pulse 94 10/22/19 23:22 Resp 16 10/22/19 23:22 BP 146/80 H 10/22/19 23:22 Pulse Ox 100 10/22/19 23:22 - Orders/Labs/Meds Orders: Active Orders 24 hr Category Date Time Status CORONAVIRUS COVID-19 PCR [facility] Urgent Lab 10/22/19 23:00 Received CULTURE STREP A CONFIRMATION [RM] Stat Lab 10/22/19 23:00 Results STREP SCRN A RAPID W CULT CONF [RM] Stat Lab 10/22/19 23:00 Results Isolation [COMM] Routine Oth 10/22/19 22:49 Active Departure - Departure Time of Disposition: 00:20 Disposition: Home, Self-Care 01 Condition: Good Clinical Impression: Myalgia, Fever - Discharge Information *PRESCRIPTION DRUG MONITORING PROGRAM REVIEWED*: No *COPY OF PRESCRIPTION DRUG MONITORING REPORT IN PATIENT [place]: No Instructions: Fever, Adult, 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 Pain, Prevent the Spread of COVID- 19 if You Are Sick - [facility] Referrals: PCP,None [Ordering Only Provider] - Forms: ED Department Discharge Additional Instructions: rest increase fluids tylenol 650mg every 4 hours as needed for discomfort isolate until results of COVID test returned Sepsis Event Note (ED) - Evaluation Sepsis Screening Result: No Definite Risk - Focused Exam Vital Signs: Vital Signs Temp Pulse Resp BP Pulse Ox 10/22/19 23:22 98.1 F 94 16 146/80 H 100 - My Orders Last 24 Hours: My Active Orders 10/22/19 22:49 Isolation [COMM] Routine 10/22/19 23:00 CORONAVIRUS COVID-19 PCR PHL Urgent CULTURE STREP A CONFIRMATION [RM] Stat STREP SCRN A RAPID W CULT CONF [RM] Stat - Assessment/Plan Last 24 Hours: My Active Orders 10/22/19 22:49 Isolation [COMM] Routine 10/22/19 23:00 CORONAVIRUS COVID-19 PCR PHL Urgent CULTURE STREP A CONFIRMATION [RM] Stat STREP SCRN A RAPID W CULT CONF [RM] Stat
== END 2019-10-23 00:29 | disposition home or self-care (01) ==
LOC: DL.ED 22:17
DX: U07.1 COVID-19 (principal)
CPT/HCPCS: 87081; 87430; 87804; 99283; U0002

== ENCOUNTER 2020-05-28 08:56 | Emergency (ER) | payer MEDICAID ==
[2020-05-28 09:25] VITALS: BP 138/73; PULSE 98
[2020-05-28] MEDS ORDERED: Ketorolac 30 MG/ML SDV IM ONE (10:35)
--- NOTE | 2020-05-28 11:18 | EDM.PDOC ---
ED HPI GENERAL MEDICAL PROBLEM - General Chief Complaint: Back Pain or Injury Stated Complaint: PULLED BACK Time Seen by Provider: 05/28/20 09:40 Source of Information: Reports: Patient, RN, RN Notes Reviewed History Limitations: Reports: No Limitations - History of Present Illness INITIAL COMMENTS - FREE TEXT/NARRATIVE: Patient presents to the ED via personal vehicle with complaints of low back pain. The patient reports the pain began abruptly at approximately 0800 while picking up her 2 year old so who weighs 89lbs. She states she felt a "..pull" when picking him up. 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 She denies recent illness, fever, shaking chills, nausea, vomiting, dysuria, hematuria, constipation, loss of bowel/bladder control, decreased motor or sensory function to the lower extremities, or saddle paraesthesia. She denies experiencing pain similar to this in the past. She has taken one dose of Tylenol 650mg with no alleviation of pain. 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 Genitourinary History: Reports: None 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: , 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 (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 Below) 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 infections 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 History: Reports: None Neurological History: Reports: None Psychiatric History: Reports: Depression Endocrine/Metabolic History: Reports: None Hematologic History: Reports: Anemia Immunologic History: Reports: None Oncologic (Cancer) History: Reports: None Dermatologic History: Reports: None - Infectious Disease History Infectious Disease History: Reports: None - Past Surgical History Head Surgeries/Procedures: Reports: None GI Surgical History: Reports: None Oncologic Surgical History: Reports: None Social & Family History - Family History Family Medical History: No Pertinent Family History - Caffeine Use Caffeine Use: Reports: Coffee ED ROS GENERAL - Review of Systems Review Of Systems: Comprehensive ROS is negative, except as noted in HPI. ED EXAM,LOWER BACK PAIN/INJURY - Physical Exam Exam: See Below Exam Limited By: No Limitations General Appearance: Alert, Mild Distress (Pain to midline, lower back) Throat/Mouth: Normal Inspection, Normal Voice, No Airway Compromise Respiratory/Chest: No Respiratory Distress, Lungs Clear, Normal Breath Sounds, No Accessory Muscle Use, Chest Non-Tender Cardiovascular: Normal Peripheral Pulses, Regular Rate, Rhythm, No Edema, No Gallop, No JVD, No Murmur, No Rub GI/Abdominal: Normal Bowel Sounds, Soft, Non-Tender, No Distention, No Mass, Pelvis Stable (Female) Exam: Deferred Rectal (Female) Exam: Deferred Back Exam: Normal Inspection, Full Range of Motion, CVA Tenderness (L), Vertebral Tenderness (Midline, lower back upon palpation; No step off ). No: CVA Tenderness (R), Muscle Spasm, Paraspinal Tenderness Extremities: Normal Inspection, Normal Range of Motion, Non-Tender, No Pedal Edema, Normal Capillary Refill Neurological: Alert, Normal Dorsiflexion, CN II-XII Intact, Normal Plantar Flexion, Normal Gait, Normal Reflexes, No Motor/Sensory Deficits, Oriented x 3 Psychiatric: Tearful Skin Exam: Warm, Dry, Intact, Normal Color, No Rash. No: Ecchymosis, Erythema, Jaundice, Mottled, Pallor, Petechiae Lymphatic: No Adenopathy Course - Vital Signs Last Recorded V/S: Last Vital Signs Temp 97.9 F 05/28/20 09:21 Pulse 98 05/28/20 09:21 Resp 14 05/28/20 09:21 BP 138/73 05/28/20 09:21 Pulse Ox 100 05/28/20 09:21 - Orders/Labs/Meds Orders: Active Orders 24 hr Category Date Time Status CULTURE URINE [RM] Stat Lab 05/28/20 10:22 Received Labs: Laboratory Tests 05/28/20 05/28/20 Range/Units 10:16 10:22 HCG, Qual Negative Urine Color Yellow (YELLOW) Urine Appearance Clear (CLEAR) Urine pH 6.0 (5.0-9.0) Ur Specific [place] >= 1.030 (1.005-1.030) Urine Protein Negative (NEGATIVE) Urine Glucose (UA) Negative (NEGATIVE) Urine Ketones Negative (NEGATIVE) Urine Occult Blood Large H (NEGATIVE) Urine Nitrite Negative (NEGATIVE) Urine Bilirubin Negative (NEGATIVE) Urine Urobilinogen 0.2 (0.2-1.0) mg/dL Ur Leukocyte Esterase Small H (NEGATIVE) Urine RBC 0-5 /HPF Urine WBC 10-20 H (0-5/HPF) /HPF Ur Epithelial Cells Few (NOT SEEN) /HPF Urine Bacteria Few (0-FEW/HPF) /HPF Meds: Medications Discontinued Medications Generic Name Dose Route Start Last Admin Trade Name Alem PRN Reason Stop Dose Admin Ketorolac Tromethamine 60 mg 05/28/20 10:35 05/28/20 11:13 Ketorolac 30 Mg/Ml Sdv IM 05/28/20 10:36 60 mg ONETIME ONE Administration - Radiology Interpretation Free Text/Narrative:: [facility] Final Radiology Report Call: [phone] assistance Online chat: [email or web address] Name: COURTNEY CARLOS Age: 24Years F Date: 05/28/2020 SSN: -- : 1995 Study: CT ABDOMEN PELVIS WO CONT Requesting Physician: Danielle Lorenzo Images: [id number] Addl Studies: Provided Clinical History: Abrupt ack pain with hematuria; r/o kindey stone Contrast: Without Contrast Medium: Contrast Amount: Contrast Method: Page 1 of 2 PROCEDURE INFORMATION: Exam: CT Abdomen And Pelvis Without Contrast Exam date and time: 05/28/2020 11:18 AM Age: 24 years old Clinical indication: Abdominal pain; Additional info: Abrupt ack pain with hematuria; R/O kindey stone TECHNIQUE: Imaging protocol: Computed tomography of the abdomen and pelvis without contrast. Radiation optimization: All CT scans at this facility use at least one of these dose optimization techniques: automated exposure control; mA and/or kV adjustment per patient size (includes targeted exams where dose is matched to clinical indication); or iterative reconstruction . COMPARISON: No relevant prior studies available. FINDINGS: Liver: Normal. No mass. Gallbladder and bile ducts: Normal. No calcified stones. No ductal dilation. Pancreas: Normal. No ductal dilation. Spleen: Normal. No splenomegaly. Adrenal glands: Normal. No mass. Kidneys and ureters: There is slight increased density within the renal medullary region bilaterally. Renal medullary hyperattenuation on unenhanced CT may be related to hydration status, precipitation of drugs within the collecting tubules, possible indicator of nephrocalcinosis or due to medullary sodium chloride concentration. No hydronephrosis. Stomach and bowel: Unremarkable. No obstruction. No mucosal thickening. Appendix: No evidence of appendicitis. Intraperitoneal space: Unremarkable. No free air. No significant fluid collection. Vasculature: Unremarkable. No abdominal aortic aneurysm. Lymph nodes: Unremarkable. No enlarged lymph nodes. Urinary bladder: There is diffuse bladder wall thickening which may be due to bladder outlet obstruction, cystitis, or underdistention. Reproductive: 3.4 cm right ovarian cyst. Bones/joints: Unremarkable. No acute fracture. Soft tissues: Unremarkable. IMPRESSION: 1. There is slight increased density within the renal medullary region bilaterally. Renal medullary hyperattenuation on unenhanced CT may be related to hydration status, precipitation of drugs within the collecting tubules, possible indicator of nephrocalcinosis or due to medullary sodium chloride concentration. 2. 3.4 cm right ovarian cyst. 3. There is diffuse bladder wall thickening which may be due to bladder outlet obstruction, cystitis, or underdistention. COMMENTS: Consistent with the [place] [employer]'s Incidental Findings Committee white paper (J Am Coretta Radiol 2018): Any incidental renal lesion less than 1 cm or classified as too small to characterize, or any incidental cystic renal lesion characterized as simple- appearing, is likely benign. No follow-up imaging is recommended for these lesions per consensus recommendations based on imaging criteria. Thank you for allowing us to participate in the care of your patient. Dictated and Authenticated by: Keagan Herrera MD 05/28/2020 11:37 AM Central Time ([place] & [place]) - Re-Assessments/Exams Free Text/Narrative Re-Assessment/Exam: 05/28/20 Patient given Toradol 60mg IM for lower back pain. UA positive for occult blood and leukocyte esterase. Given +L CVA tenderness and abrupt onset of pain will obtain CT abdomen/pelvis to r/o kidney stone. CT negative for kidney stones but does reveal bladder wall thickening. Will treat acute cystitis with Augmentin. Proper body mechanics related to lifting child reviewed with patient, including squatting vs hip-hinge motion. Will treat acute low back pain with tramadol and supportive cares. Red flag signs and symptoms which would warrant reevaluation discussed. Patient verbalized understanding and agreement with the plan of care. Departure - Departure Time of Disposition: 11:59 Disposition: Home, Self-Care 01 Condition: Good Clinical Impression: Acute cystitis with hematuria Low back pain Qualifiers: Chronicity: acute Back pain laterality: midline Sciatica presence: without sciatica Qualified Code(s): M54.5 - Low back pain - Discharge Information *PRESCRIPTION DRUG MONITORING PROGRAM REVIEWED*: Not Applicable *COPY OF PRESCRIPTION DRUG MONITORING REPORT IN PATIENT [place]: Not Applicable Instructions: Muscle Strain, [id number] Referrals: Aishwarya Denise MD [Primary Care Provider] - Forms: ED Department Discharge Additional Instructions: Rx: Augmentin Rx: tramadol 1.) Take all of your antibiotic until it is gone. 2.) In additional to tramadol, you may take acetaminophen (Tylenol) 650mg every six hours, for pain. You may also take ibuprofen (Motrin/Advil) 400mg every six hours, as pain persists. You may stagger these medications so you are taking a dose every three hours. 3.) Drink plenty of water to stay hydrated and flush out your bladder. 4.) Apply warm compresses to your lower back for comfort. Sepsis Event Note (ED) - Evaluation Sepsis Screening Result: No Definite Risk - Focused Exam Vital Signs: Vital Signs Temp Pulse Resp BP Pulse Ox 05/28/20 09:21 97.9 F 98 14 138/73 100 - My Orders Last 24 Hours: My Active Orders 05/28/20 10:22 CULTURE URINE [RM] Stat - Assessment/Plan Last 24 Hours: My Active Orders 05/28/20 10:22 CULTURE URINE [RM] Stat
--- NOTE | 2020-05-28 11:37 | CT ---
PROCEDURE INFORMATION: Exam: CT Abdomen And Pelvis Without Contrast Exam date and time: 05/28/2020 11:18 AM Age: 24 years old Clinical indication: Abdominal pain; Additional info: Abrupt ack pain with hematuria; R/O kindey stone TECHNIQUE: Imaging protocol: Computed tomography of the abdomen and pelvis without contrast. Radiation optimization: All CT scans at this facility use at least one of these dose optimization techniques: automated exposure control; mA and/or kV adjustment per patient size (includes targeted exams where dose is matched to clinical indication); or iterative reconstruction. COMPARISON: No relevant prior studies available. FINDINGS: Liver: Normal. No mass. Gallbladder and bile ducts: Normal. No calcified stones. No ductal dilation. Pancreas: Normal. No ductal dilation. Spleen: Normal. No splenomegaly. Adrenal glands: Normal. No mass. Kidneys and ureters: There is slight increased density within the renal medullary region bilaterally. Renal medullary hyperattenuation on unenhanced CT may be related to hydration status, precipitation of drugs within the collecting tubules, possible indicator of nephrocalcinosis or due to medullary sodium chloride concentration. No hydronephrosis. Stomach and bowel: Unremarkable. No obstruction. No mucosal thickening. Appendix: No evidence of appendicitis. Intraperitoneal space: Unremarkable. No free air. No significant fluid collection. Vasculature: Unremarkable. No abdominal aortic aneurysm. Lymph nodes: Unremarkable. No enlarged lymph nodes. Urinary bladder: There is diffuse bladder wall thickening which may be due to bladder outlet obstruction, cystitis, or underdistention. Reproductive: 3.4 cm right ovarian cyst. Bones/joints: Unremarkable. No acute fracture. Soft tissues: Unremarkable. IMPRESSION: 1. There is slight increased density within the renal medullary region bilaterally. Renal medullary hyperattenuation on unenhanced CT may be related to hydration status, precipitation of drugs within the collecting tubules, possible indicator of nephrocalcinosis or due to medullary sodium chloride concentration. 2. 3.4 cm right ovarian cyst. 3. There is diffuse bladder wall thickening which may be due to bladder outlet obstruction, cystitis, or underdistention. COMMENTS: Consistent with the [place] [employer]'s Incidental Findings Committee white paper (J Am Coretta Radiol 2018): Any incidental renal lesion less than 1 cm or classified as too small to characterize, or any incidental cystic renal lesion characterized as simple-appearing, is likely benign. No follow-up imaging is recommended for these lesions per consensus recommendations based on imaging criteria.
== END 2020-05-28 12:10 | disposition home or self-care (01) ==
LOC: DL.ED 08:56
DX: N30.01 Acute cystitis with hematuria (principal)
CPT/HCPCS: 36415; 74176; 81001; 84703; 87086; 96372; 99283; 99284; J1885

== ENCOUNTER 2020-08-03 12:18 | Inpatient (IN) | payer OTHER, MEDICAID ==
[~2020-08-03 12:18] MED LIST changes: -Acetaminophen 325 MG Tab PO PRN; -Carboprost Tromethamine 250 MCG/1 ML Amp IM PRN; -Lactated Ringers 500 ML IV ONE; -Lidocaine 1% 30 ML SDV INJECT PRN; -Methylergonovine 0.2 MG/1 ML Amp IM PRN; -Misoprostol 25 MCG (1/4 of 100 MCG) Tab VAG PRN; -Misoprostol 400 MCG (4 X 100 MCG TAB) RECTAL PRN; -Oxytocin/Normal Saline 30 UNIT/500 ML BAG IV SCH; +Sodium Chloride 0.9% 1,000 ML IV ONE; -Sodium Chloride 0.9% 10 ML Syringe FLUSH PRN; -Tranexamic Acid 1,000 MG in Sodium Chloride 0.9% 100 ML IV PRN
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
[2020-08-03 12:31] LABS: PTT,PARTIAL THROMBOPLSTIN TIME 22.4 SEC (22.0-34.0)
[2020-08-03 12:34] LABS: ANION GAP 16.6 mEq/L (7-13); CHLORIDE,CL 106 mmol/L (98-107); SODIUM,NA 140 mmol/L (136-145)
[2020-08-03] MEDS ORDERED: fentaNYL 100 MCG/2 ML SDV IVPUSH ONE (12:34)
[2020-08-03] MEDS ORDERED: Lactated Ringers 1,000 ML IV ONE (12:42)
[2020-08-03] MEDS ORDERED: fentaNYL 100 MCG/2 ML SDV IV ONE (12:42)
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
[2020-08-03] MEDS ORDERED: Iopamidol 612 MG/ML 100 ML Bottle IVPUSH ONE (13:08)
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
[2020-08-03] MEDS ORDERED: Ondansetron 4 MG/2 ML SDV IVPUSH PRN (14:06)
[2020-08-03] MEDS ORDERED: Acetaminophen 325 MG Tab PO PRN (14:06)
[2020-08-03] MEDS ORDERED: LORazepam 2 MG/ML SDV IV PRN (14:10)
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
[2020-08-03] MEDS: Ascorbic Acid 500 MG Tab PO SCH (16:07)
[2020-08-03] MEDS: Morphine 2 MG/ML SYRINGE IVPUSH PRN (21:47)
[2020-08-03] MEDS: Acetaminophen/oxyCODONE 325-5 MG Tab PO PRN (22:26)
[2020-08-04] MEDS: Acetaminophen/oxyCODONE 325-5 MG Tab PO PRN ×2 (02:52→08:23)
[2020-08-04] MEDS: Morphine 2 MG/ML SYRINGE IVPUSH PRN (06:13)
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
[2020-08-04] MEDS: Ascorbic Acid 500 MG Tab PO SCH (08:23)
[2020-08-04] MEDS ORDERED: Iron Sucrose Complex 100 MG in Sodium Chloride 0.9% 100 ML IV SCH (09:00)
[2020-08-04] MEDS ORDERED: Iron Sucrose Complex 100 MG/5 ML SDV IVPUSH SCH (09:00)
[2020-08-04] MEDS: Sodium Chloride 0.9% 10 ML Syringe FLUSH PRN ×2 (09:18→09:52)
[2020-08-04 12:41] VITALS: BP 123/81; PULSE 66
== END 2020-08-04 14:20 | disposition home or self-care (01) | DRG 206 ==
LOC: DL.ED 12:18 → DL.MS 13:28
PROVIDERS: ADMIT Internal Medicine; ATTEND Internal Medicine
PROC: 30233N1 Transfusion of Nonautologous Red Blood Cells into Peripheral Vein, Percutaneous Approach (ICD-10-PCS; principal; 2020-08-03)
DX: S27.322A Contusion of lung, bilateral, initial encounter (principal); G93.49 Other encephalopathy; F32.9 Major depressive disorder, single episode, unspecified; Z20.822 Contact with and (suspected) exposure to COVID-19; F10.10 Alcohol abuse, uncomplicated; D47.3 Essential (hemorrhagic) thrombocythemia; D50.9 Iron deficiency anemia, unspecified; N92.0 Excessive and frequent menstruation with regular cycle; F17.200 Nicotine dependence, unspecified, uncomplicated; V49.50XA Passenger injured in collision with unspecified motor vehicles in traffic accident, initial encounter; Y92.410 Unspecified street and highway as the place of occurrence of the external cause; Z79.899 Other long term (current) drug therapy
CPT/HCPCS: 36415; 36430; 51702; 70450; 71260; 72125; 72128; 74177; 80053; 80305-QW; 80307; 81001; 82140; 82668; 82728; 83036; 83540; 83550; 83615; 84484; 84703; 85025; 85045; 85610; 85730; 86850; 86900; 86901; 86920; 86922; 99284; 99285-25; A9270-GY; J1756; J2270; J2405; J3010; J7120; P9016; Q9967; U0002

== ENCOUNTER 2020-08-05 22:55 | Emergency (ER) | payer OTHER, MEDICAID ==
[2020-08-06] MEDS ORDERED: Ketorolac 30 MG/ML SDV IVPUSH ONE (00:24)
[2020-08-06] MEDS ORDERED: Sodium Chloride 0.9% 1,000 ML IV ONE (00:24)
[2020-08-06 00:27] VITALS: BP 127/91; PULSE 78
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
[2020-08-06 01:34] LABS: CHLORIDE,CL 103 mmol/L (98-107); SODIUM,NA 140 mmol/L (136-145)
--- NOTE | 2020-08-06 01:52 | CR ---
PROCEDURE INFORMATION: Exam: XR Chest Exam date and time: 08/06/2020 12:43 AM Age: 24 years old Clinical indication: Shortness of breath; Additional info: Short of breath TECHNIQUE: Imaging protocol: XR of the chest. Views: 1 view. COMPARISON: CT Chest Abdomen Pelvis w Cont 08/03/2020 12:18 PM FINDINGS: Lungs: There are low lung volumes. Otherwise, the lungs are clear. Pleural spaces: Unremarkable. No pleural effusion. No pneumothorax. Heart/Mediastinum: Unremarkable. No cardiomegaly. Bones/joints: Unremarkable. IMPRESSION: There are low lung volumes. Otherwise, the lungs are clear.
[2020-08-06] MEDS ORDERED: Acetaminophen/HYDROcodone 325-10 MG Tab PO ONE (02:10)
== END 2020-08-06 02:29 | disposition home or self-care (01) ==
LOC: DL.ED 22:55
DX: S27.321A Contusion of lung, unilateral, initial encounter (principal); V89.2XXA Person injured in unspecified motor-vehicle accident, traffic, initial encounter
CPT/HCPCS: 36415; 71045; 80053; 85025; 96374; 99283; 99283-25; A9270-GY; J1885; J7030

== ENCOUNTER 2020-08-27 13:17 | Emergency (ER) | payer MEDICAID ==
--- NOTE | 2020-08-27 14:07 | EDM.PDOC ---
ED HPI GENERAL MEDICAL PROBLEM - General Chief Complaint: Gastrointestinal Problem Stated Complaint: VOMITING,FEVER,CHILLS Time Seen by Provider: 08/27/20 14:02 Source of Information: Reports: Patient, RN, RN Notes Reviewed History Limitations: Reports: No Limitations - History of Present Illness INITIAL COMMENTS - FREE TEXT/NARRATIVE: Paloma is a 24 y/o female who presents to the ED via personal vehicle with complaints of fever, sore throat, and dry cough. The patient reports her symptoms began last night and have progressively worsened in that time. She feels her symptoms are the worst at night and experience difficulty sleeping last night. She notes her fever this morning was 101.7 which appropriately reduced with one dose of ibuprofen 400mg. She denies shaking chills, ear pain/pressure, chest pain, palpitations, nausea, diarrhea, constipation, or dysuria. She does attest to sinus congestion and coughing so hard she vomited once. 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 She denies tobacco, alcohol, or recreational drug use. - Related Data Allergies Allergy/AdvReac Type Severity Reaction Status Date / Time No Known Allergies Allergy Verified 08/06/20 00:25 Home Meds: Home Meds Acetaminophen [Tylenol] 650 mg PO Q4H PRN tablet 08/04/20 [Rx] Acetaminophen/HYDROcodone [[place] 325-5 MG] 1 tab PO Q6H PRN 15 Days #15 tab 08/04/20 [Rx] Ascorbic Acid [Vitamin C] 500 mg PO DAILY 30 Days #30 tablet 08/04/20 [Rx] Ferrous Sulfate 325 mg PO BID 30 Days #60 tablet 08/04/20 [Rx] Past Medical History - Past Health History Medical/Surgical History: Denies Medical/Surgical History HEENT History: Reports: None Cardiovascular History: Reports: None Respiratory History: Reports: None Gastrointestinal History: Reports: Other (See Below) 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 Genitourinary History: Reports: None 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: , 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 (See Below) 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 History: Reports: None Neurological History: Reports: None Psychiatric History: Reports: Depression Endocrine/Metabolic History: Reports: None Hematologic History: Reports: Anemia Immunologic History: Reports: None Oncologic (Cancer) History: Reports: None Dermatologic History: Reports: None - Infectious Disease History Infectious Disease History: Reports: None - Past Surgical History Head Surgeries/Procedures: Reports: None GI Surgical History: Reports: None Oncologic Surgical History: Reports: None Social & Family History - Family History Family Medical History: No Pertinent Family History - Caffeine Use Caffeine Use: Reports: Coffee, Energy Drinks, Soda, Tea, Other ED ROS GENERAL - Review of Systems Review Of Systems: Comprehensive ROS is negative, except as noted in HPI. ED EXAM, GENERAL - Physical Exam Exam: See Below Exam Limited By: No Limitations General Appearance: Alert, No Apparent Distress Eye Exam: Bilateral Eye: EOMI, Normal Inspection, PERRL (3mm) Ears: Normal External Exam, Normal Canal, Hearing Grossly Normal. No: Normal TMs Ear Exam: Bilateral Ear: Auricle Normal, Canal Normal, TM Dull Nose: Normal Inspection, Normal Mucosa, No Blood Throat/Mouth: Normal Inspection, Normal Oropharynx, Normal Voice, No Airway Compromise Head: Atraumatic, Normocephalic Neck: Normal Inspection, Supple, Non-Tender, Full Range of Motion. No: Lymphadenopathy (L), Lymphadenopathy (R) Respiratory/Chest: No Respiratory Distress, Lungs Clear, Normal Breath Sounds, No Accessory Muscle Use, Chest Non-Tender. No: Crackles, Rales, Rhonchi, Wheezing Cardiovascular: Normal Peripheral Pulses, Regular Rate, Rhythm, No Edema, No Gallop, No JVD, No Murmur, No Rub Peripheral Pulses: 2+: Radial (L), Radial (R) GI/Abdominal: Normal Bowel Sounds, Soft, Non-Tender, No Distention, No Abnormal Bruit, No Mass, Pelvis Stable (Female) Exam: Deferred Rectal (Female) Exam: Deferred Back Exam: Normal Inspection, Full Range of Motion Extremities: Normal Inspection, Normal Range of Motion, Non-Tender, Normal Capillary Refill, No Pedal Edema Neurological: Alert, Oriented, CN II-XII Intact, Normal Cognition, Normal Gait, No Motor/Sensory Deficits Psychiatric: Normal Affect, Normal Mood Skin Exam: Warm, Dry, Intact, Normal Color, No Rash. No: Cyanosis, Jaundice, Mottled, Pallor Lymphatic: No Adenopathy Course - Re-Assessments/Exams Free Text/Narrative Re-Assessment/Exam: 08/27/20 Findings of examination reviewed with patient. Will treat cough and sore throat with Tessalon and Cepacol. Discussed supportive cares for URI. Red flag signs and symptoms which would warrant reevaluation reviewed. Patient verbalized understanding and agreement with the plan of care. Departure - Departure Time of Disposition: 14:07 Disposition: Home, Self-Care 01 Condition: Good Clinical Impression: Acute upper respiratory infection - Discharge Information *PRESCRIPTION DRUG MONITORING PROGRAM REVIEWED*: Not Applicable *COPY OF PRESCRIPTION DRUG MONITORING REPORT IN PATIENT [place]: Not Applicable Instructions: Upper Respiratory Infection, Adult, [id number] Forms: ED Department Discharge Additional Instructions: Rx: Tessalon Rx: Cepacol Lozenges 1.) Continue with acetaminophen (Tylenol) and ibuprofen (Motrin/Advil), per his weight, for fever and general aches. 2.) Offer frequent water to keep him hydrated, avoid juice and excessive fruit should he experience diarrhea. 3.) Trial hot steamy shower sit-ins and sleeping with a humidifier on for congestion. 4.) Follow up with primary care provider, or return to the emergency department, with any worsening symptoms or symptoms that persists for 10 days.
[2020-08-28 07:05] VITALS: BP 133/54; PULSE 76
== END 2020-08-27 14:50 | disposition home or self-care (01) ==
LOC: DL.ED 13:17
DX: J06.9 Acute upper respiratory infection, unspecified (principal)
CPT/HCPCS: 99282; 99283

== ENCOUNTER 2020-09-29 20:55 | Emergency (ER) | payer MEDICAID | END 2020-09-29 22:11 | disposition left against medical advice (07) | LOC: DL.ED 20:55 | DX: L23.7 Allergic contact dermatitis due to plants, except food (principal); Z53.21 Procedure and treatment not carried out due to patient leaving prior to being seen by health care provider ==

== ENCOUNTER 2021-05-03 06:55 | Emergency (ER) | payer MEDICAID ==
[2021-05-03 07:10] VITALS: BP 122/79; PULSE 110
[2021-05-03] MEDS ORDERED: Sodium Chloride 0.9% 1,000 ML IV ONE (07:46)
[2021-05-03 07:57] LABS: ANION GAP 17.6 mEq/L (7-13); CHLORIDE,CL 107 mmol/L (98-107); SODIUM,NA 143 mmol/L (136-145)
== END 2021-05-03 11:18 | disposition home or self-care (01) ==
LOC: DL.ED 06:55
DX: T69.9XXA Effect of reduced temperature, unspecified, initial encounter (principal)
CPT/HCPCS: 36415; 80053; 80307; 83605; 85025; 99282; 99283; J7030

== ENCOUNTER 2021-05-09 20:45 | Emergency (ER) | payer MEDICAID ==
[2021-05-09 21:28] LABS: AMPHETAMINES,URINE NEGATIVE (NEGATIVE); BARBITURATES,URINE NEGATIVE (NEGATIVE); BENZODIAZEPINE,URINE NEGATIVE (NEGATIVE); MDMA (ECSTASY), URINE NEGATIVE (NEGATIVE); METHADONE,URINE NEGATIVE (NEGATIVE); METHAMPHETAMINES,URINE NEGATIVE (NEGATIVE); OPIATES,URINE NEGATIVE (NEGATIVE); OXYCODONE,URINE NEGATIVE (NEGATIVE); PHENCYCLIDINE,URINE NEGATIVE (NEGATIVE); TCA,URINE NEGATIVE (NEGATIVE)
[2021-05-09 21:44] LABS: ANION GAP 17.7 mEq/L (7-13); CHLORIDE,CL 104 mmol/L (98-107); SODIUM,NA 141 mmol/L (136-145)
[2021-05-09 22:06] VITALS: BP 130/80; PULSE 99
[2021-05-10] MEDS ORDERED: Methylnaltrexone 12 MG/0.6 ML SDV SUBCUT ONE (00:16)
[2021-05-10] MEDS ORDERED: Lactulose Soln 10 GM/15 ML 30 ML UD Cup PO ONE (00:16)
== END 2021-05-09 23:37 | disposition home or self-care (01) ==
LOC: DL.ED 20:45
DX: D64.9 Anemia, unspecified (principal); E66.9 Obesity, unspecified; Z68.39 Body mass index [BMI] 39.0-39.9, adult
CPT/HCPCS: 36415; 80053; 80305-QW; 80307; 81001; 81025; 85025; 87086; 87088; 87186; 99282; 99285

== ENCOUNTER 2022-07-05 21:46 | Emergency (ER) | payer BC, MEDICAID ==
[2022-07-05 22:09] VITALS: BP 130/92; PULSE 89
[2022-07-05] MEDS ORDERED: Sodium Chloride 0.9% 10 ML Syringe FLUSH PRN (22:21)
[2022-07-05] MEDS ORDERED: Ketorolac 30 MG/ML SDV IVPUSH ONE (22:21)
[2022-07-05 22:50] LABS: BASOPHILS PERCENT AUTO 0.4 % (0.0-1.0); HEMATOCRIT 25.6 % (37.0-47.0); HEMOGLOBIN 7.2 g/dL (12.0-16.0); MEAN CORPUSCULAR HEMOGLOBIN 17.3 pg (27.0-34.0); MEAN CORPUSCULAR HGB CONC 28.1 g/dL (33.0-35.0); MEAN CORPUSCULAR VOLUME 61.4 fL (80-100); MONOCYTES PERCENT AUTO 9.3 % (2-8); NEUTROPHILS PERCENT AUTO 60.3 % (42.2-75.2); PLATELET COUNT,PLT 516 10^3/uL (150-450); RED BLOOD CELL COUNT 4.17 10^6/uL (4.2-5.4)
[2022-07-05 22:59] LABS: ANION GAP 11.7 mEq/L (7-13); CALCIUM 8.5 mg/dL (8.5-10.1); CREATININE 0.86 mg/dL (0.55-1.02); EST CRCL DRUG DOSING (CG) 90.76 mL/min; POTASSIUM,K 3.7 mmol/L (3.5-5.1)
== END 2022-07-06 00:35 | disposition home or self-care (01) ==
LOC: DL.ED 21:46
DX: M94.0 Chondrocostal junction syndrome [Tietze] (principal); E66.9 Obesity, unspecified; F17.210 Nicotine dependence, cigarettes, uncomplicated; Z68.41 Body mass index [BMI] 40.0-44.9, adult; Z86.16 Personal history of COVID-19
CPT/HCPCS: 36415; 71046; 80048; 85025; 85379; 93005; 93010; 96374; 99284; 99285; J1885; J3490

== ENCOUNTER 2022-09-29 20:22 | Emergency (ER) | payer BC, MEDICAID ==
[2022-09-29 22:35] VITALS: BP 138/88; PULSE 98
== END 2022-09-29 23:02 | disposition home or self-care (01) ==
LOC: DL.ED 20:22
DX: H92.02 Otalgia, left ear (principal); E66.9 Obesity, unspecified; Z68.39 Body mass index [BMI] 39.0-39.9, adult; Z86.16 Personal history of COVID-19
CPT/HCPCS: 99282

== ENCOUNTER 2022-12-23 22:33 | Emergency (ER) | payer BC, MEDICAID | END 2022-12-23 23:51 | disposition home or self-care (01) | LOC: DL.ED 22:33 | DX: M79.10 Myalgia, unspecified site (principal); Z20.822 Contact with and (suspected) exposure to COVID-19; E66.9 Obesity, unspecified; Z68.38 Body mass index [BMI] 38.0-38.9, adult; Z86.16 Personal history of COVID-19 | CPT/HCPCS: 99283; U0002 ==

== ENCOUNTER 2023-02-11 00:49 | Emergency (ER) | payer BC ==
[2023-02-11] MEDS ORDERED: Sodium Chloride 0.9% 10 ML Syringe FLUSH PRN (01:07)
[2023-02-11] MEDS ORDERED: Dexamethasone 4 MG/ML SDV IVPUSH ONE (01:07)
[2023-02-11] MEDS ORDERED: Albuterol/Ipratropium 3.0-0.5 MG/3 ML Neb Soln NEB ONE ×2 (01:07→01:54)
[2023-02-11 01:21] LABS: BASOPHILS PERCENT AUTO 0.6 % (0.0-1.0); EOSINOPHILS PERCENT AUTO 9.8 % (1.0-3.0); HEMATOCRIT 29.1 % (37.0-47.0); HEMOGLOBIN 8.2 g/dL (12.0-16.0); LYMPHOCYTES PERCENT AUTO 25.8 % (20.5-50.1); MEAN CORPUSCULAR HEMOGLOBIN 17.2 pg (27.0-34.0); MEAN CORPUSCULAR HGB CONC 28.2 g/dL (33.0-35.0); MONOCYTES PERCENT AUTO 7.9 % (2-8); NEUTROPHILS PERCENT AUTO 55.9 % (42.2-75.2); PLATELET COUNT,PLT 554 10^3/uL (150-450); RED BLOOD CELL COUNT 4.77 10^6/uL (4.2-5.4); WHITE BLOOD CELL COUNT,WBC 10.1 10^3/uL (5.0-10.0)
[2023-02-11 01:36] VITALS: BP 101/75; PULSE 96
[2023-02-11 01:41] LABS: ALBUMIN 3.6 g/dL (3.4-5.0); ANION GAP 14.6 mEq/L (7-13); BUN/CREATININE RATIO 8.5 (No establ ref range); CALCIUM 8.4 mg/dL (8.5-10.1); CREATININE 0.71 mg/dL (0.55-1.02); EST CRCL DRUG DOSING (CG) 108.99 mL/min; POTASSIUM,K 3.6 mmol/L (3.5-5.1); PROTEIN TOTAL,TP 8.8 g/dL (6.4-8.2)
[2023-02-11 01:42] LABS: A/G RATIO 0.7; BILIRUBIN TOTAL 0.4 mg/dL (0.2-1.0)
[2023-02-11 01:58] LABS: CORONAVIRUS COVID-19 NAA NEGATIVE (NEGATIVE); INFLUENZA A NAA NEGATIVE (NEGATIVE); INFLUENZA B NAA NEGATIVE (NEGATIVE); RESPIRATORY SYNCYTIAL VIR NAA NEGATIVE (NEGATIVE)
[2023-02-11] MEDS ORDERED: cefTRIAXone 1 GM Vial IVPUSH ONE (02:04)
[2023-02-11] MEDS ORDERED: Codeine/Promethazine 10-6.25 MG/5 ML Syrup 5 ML UD Cup PO ONE (02:06)
[2023-02-11] MEDS ORDERED: Albuterol 6.7 GM Inhaler INH ONE (02:07)
== END 2023-02-11 03:03 | disposition home or self-care (01) ==
LOC: DL.ED 00:49
DX: J06.9 Acute upper respiratory infection, unspecified (principal); E66.9 Obesity, unspecified; Z20.822 Contact with and (suspected) exposure to COVID-19
CPT/HCPCS: 0241U; 36415; 71045; 80053; 85025; 94640; 96374; 96375; 99284; 99284-25; A9270-GY; J0696; J1100; J3490; J7620-GY

== ENCOUNTER 2023-12-28 19:53 | Inpatient (IN) | payer BC ==
[2023-12-28] MEDS: Acetaminophen Soln 160 MG/5 ML UD Cup PO ONE (20:25)
[2023-12-28] MEDS: Sodium Chloride 0.9% 2,000 ML IV ONE (20:25)
[2023-12-28] MEDS: cefTRIAXone 1 GM Vial IVPUSH ONE (20:25)
[2023-12-28] MEDS: Ondansetron 4 MG/2 ML SDV IVPUSH ONE (20:25)
[2023-12-28 20:33] LABS: HEMATOCRIT 28.8 % (37.0-47.0); HEMOGLOBIN 8.3 g/dL (12.0-16.0); MEAN CORPUSCULAR HEMOGLOBIN 17.6 pg (27.0-34.0); MEAN CORPUSCULAR HGB CONC 28.8 g/dL (33.0-35.0); MEAN CORPUSCULAR VOLUME 61.1 fL (80-100); PLATELET COUNT,PLT 535 10^3/uL (150-450); RED BLOOD CELL COUNT 4.71 10^6/uL (4.2-5.4)
[2023-12-28 20:35] LABS: BASOPHILS PERCENT AUTO 0.2 % (0.0-1.0); LYMPHOCYTES PERCENT AUTO 7.4 % (20.5-50.1); MONOCYTES PERCENT AUTO 10.8 % (2-8); NEUTROPHILS PERCENT AUTO 81.6 % (42.2-75.2)
[2023-12-28 20:50] LABS: ALBUMIN 3.3 g/dL (3.4-5.0); ANION GAP 17.2 mEq/L (7-13); BILIRUBIN TOTAL 0.6 mg/dL (0.2-1.0); BUN/CREATININE RATIO 13.7 (No establ ref range); CALCIUM 8.8 mg/dL (8.5-10.1); CREATININE 0.95 mg/dL (0.55-1.02); EST CRCL DRUG DOSING (CG) 80.75 mL/min; MAGNESIUM 2.2 mg/dL (1.8-2.4); POTASSIUM,K 3.2 mmol/L (3.5-5.1); PROTEIN TOTAL,TP 9.1 g/dL (6.4-8.2)
[2023-12-28 20:51] LABS: A/G RATIO 0.57; LYMPHOCYTES PERCENT MAN 6 % (20-50); MONOCYTES PERCENT MAN 7 % (2-8); SEG NEUTROPHILS PERCENT MAN 87 % (42-75)
[2023-12-28] MEDS: Iopamidol 612 MG/ML 100 ML Bottle IVPUSH ONE (20:53)
[2023-12-28 20:54] LABS: HYPOCHROMASIA 1+ SLIGHT; MICROCYTOSIS 1+ SLIGHT
[2023-12-28 20:55] LABS: LACTIC ACID 1.3 mmol/L (0.4-2.0)
[2023-12-28] MEDS: Sodium Chloride 0.9% 1,000 ML IV ONE (21:37)
[2023-12-28] MEDS: Potassium Chloride 20 MEQ in Premix Bag 1 BAG IV ONE (21:37)
[2023-12-28] MEDS: Ketorolac 30 MG/ML SDV IVPUSH ONE (22:02)
[2023-12-28] MEDS ORDERED: Metoprolol Tartrate 5 MG/5 ML SDV IVPUSH PRN (22:46)
[2023-12-28] MEDS ORDERED: hydrALAZINE 20 MG/ML SDV IVPUSH PRN (22:46)
[2023-12-28] MEDS ORDERED: Ondansetron 4 MG/2 ML SDV IVPUSH PRN (22:47)
[2023-12-28] MEDS ORDERED: Metoclopramide 10 MG/2 ML SDV IV PRN (22:47)
[2023-12-28] MEDS ORDERED: Albuterol/Ipratropium 3.0-0.5 MG/3 ML Neb Soln NEB PRN (22:47)
[2023-12-28] MEDS ORDERED: Temazepam 15 MG Cap PO PRN (22:47)
[2023-12-28] MEDS ORDERED: LORazepam 2 MG/ML SDV IVPUSH PRN (22:47)
[2023-12-28] MEDS ORDERED: Acetaminophen 325 MG Tab PO PRN (22:47)
[2023-12-28] MEDS ORDERED: Magnesium Hydroxide 400 MG/5 ML Susp 30 ML Cup PO PRN (22:47)
[2023-12-28] MEDS ORDERED: Acetaminophen/oxyCODONE 325-5 MG Tab PO PRN (22:47)
[2023-12-28] MEDS ORDERED: Polyethylene Glycol 3350 Powder 17 GM Packet PO PRN (22:47)
[2023-12-28] MEDS ORDERED: Sennosides/Docusate Sodium 50-8.6 MG Tab PO PRN (22:47)
[2023-12-28] MEDS ORDERED: Naloxone 2 MG/2 ML Syringe IVPUSH PRN (22:47)
[2023-12-28 22:54] LABS: C-REACTIVE PROTEIN 23.2 ng/dL (<=0.50)
[2023-12-28] MEDS ORDERED: Benzocaine 20% Oral Spray 59.2 ML Canister MUCMEM PRN (22:56)
[2023-12-28] MEDS: Temazepam 15 MG Cap PO PRN (23:46)
[2023-12-28] MEDS: Ampicillin/Sulbactam Na 3 GM in Sodium Chloride 0.9% 100 ML IV SCH (23:46)
[2023-12-28] MEDS: Dextrose 5%-0.9% NaCl 1,000 ML IV SCH (23:47)
[2023-12-29] MEDS: Dexamethasone 4 MG/ML SDV IVPUSH ONE (00:15)
[2023-12-29] MEDS: HYDROmorphone 0.5 MG/0.5 ML Syringe IVPUSH PRN (00:15)
[2023-12-29] MEDS: Famotidine 20 MG/2 ML SDV IVPUSH ONE (00:16)
[2023-12-29] MEDS: Penicillin G Benzathine 1,200,000 Units/2 ML Syringe IM ONE (00:16)
[2023-12-29] MEDS: diphenhydrAMINE 50 MG/ML SDV IVPUSH ONE (00:16)
[2023-12-29 06:59] LABS: HEMATOCRIT 25.4 % (37.0-47.0); MEAN CORPUSCULAR HEMOGLOBIN 17.4 pg (27.0-34.0); MEAN CORPUSCULAR HGB CONC 27.6 g/dL (33.0-35.0); PLATELET COUNT,PLT 435 10^3/uL (150-450); RED BLOOD CELL COUNT 4.03 10^6/uL (4.2-5.4); WHITE BLOOD CELL COUNT,WBC 13.7 10^3/uL (5.0-10.0)
[2023-12-29 07:01] LABS: BASOPHILS PERCENT AUTO 0.2 % (0.0-1.0); EOSINOPHILS PERCENT AUTO 0.5 % (1.0-3.0); LYMPHOCYTES PERCENT AUTO 4.4 % (20.5-50.1); MONOCYTES PERCENT AUTO 3.6 % (2-8); NEUTROPHILS PERCENT AUTO 91.3 % (42.2-75.2)
[2023-12-29 08:15] LABS: HYPOCHROMASIA 1+ SLIGHT; LYMPHOCYTES PERCENT MAN 6 % (20-50); MONOCYTES PERCENT MAN 4 % (2-8); SEG NEUTROPHILS PERCENT MAN 90 % (42-75)
[2023-12-29 08:22] LABS: ALBUMIN 2.6 g/dL (3.4-5.0); ANION GAP 12.2 mEq/L (7-13); BILIRUBIN TOTAL 0.2 mg/dL (0.2-1.0); BUN/CREATININE RATIO 14.5 (No establ ref range); C-REACTIVE PROTEIN 16.78 ng/dL (<=0.50); CALCIUM 8.7 mg/dL (8.5-10.1); CREATININE 0.69 mg/dL (0.55-1.02); EST CRCL DRUG DOSING (CG) 111.18 mL/min; MAGNESIUM 2.5 mg/dL (1.8-2.4); POTASSIUM,K 4.2 mmol/L (3.5-5.1); PROTEIN TOTAL,TP 7.6 g/dL (6.4-8.2)
[2023-12-29 08:23] LABS: A/G RATIO 0.52
[2023-12-29] MEDS: Famotidine 20 MG/2 ML SDV IVPUSH SCH (09:09)
[2023-12-29] MEDS: diphenhydrAMINE 50 MG/ML SDV IVPUSH SCH (09:10)
[2023-12-29] MEDS: Dexamethasone 4 MG/ML SDV IVPUSH SCH (09:11)
[2023-12-29] MEDS: Nicotine 21 MG/24 Hr Patch TRDERM SCH (09:13)
[2023-12-29 11:18] LABS: APPEARANCE,URINE CLEAR (CLEAR); BILIRUBIN,URINE NEGATIVE (NEGATIVE); COLOR,URINE YELLOW (YELLOW); GLUCOSE,URINE NEGATIVE (NEGATIVE); KETONES,URINE NEGATIVE (NEGATIVE); LEUKOCYTE ESTERASE,URINE NEGATIVE (NEGATIVE); NITRITE,URINE NEGATIVE (NEGATIVE); OCCULT BLOOD,URINE MODERATE (NEGATIVE); PROTEIN,URINE 30 (NEGATIVE); UROBILINOGEN,URINE 0.2 mg/dL (0.2-1.0)
[2023-12-29 11:24] LABS: AMPHETAMINES,URINE NEGATIVE (NEGATIVE); BARBITURATES,URINE NEGATIVE (NEGATIVE); BENZODIAZEPINE,URINE POSITIVE (NEGATIVE); MDMA (ECSTASY), URINE NEGATIVE (NEGATIVE); METHADONE,URINE NEGATIVE (NEGATIVE); METHAMPHETAMINES,URINE NEGATIVE (NEGATIVE); OPIATES,URINE POSITIVE (NEGATIVE); OXYCODONE,URINE NEGATIVE (NEGATIVE); PHENCYCLIDINE,URINE NEGATIVE (NEGATIVE); TCA,URINE NEGATIVE (NEGATIVE)
[2023-12-29 11:37] LABS: WBC,URINE 0-5 /HPF (0-5/HPF)
[2023-12-29 11:38] LABS: BACTERIA,URINE FEW /HPF (0-FEW/HPF); EPITHELIAL CELLS,URINE OCCASIONAL /HPF (NOT SEEN); MUCUS,URINE FEW /LPF (NOT SEEN)
[2023-12-29] MEDS: Benzocaine/Cetylpyridinium/Menthol Lozenge MUCMEM PRN (12:26)
[2023-12-29] MEDS ORDERED: Benzocaine 20% Oral Spray 59.2 ML Canister MUCMEM PRN ×2 (17:52→17:56)
[2023-12-29] MEDS: Benzocaine 20% Topical Spray UD MUCMEM PRN (18:09)
[2023-12-29] MEDS: Check NICOTINE Patch TRDERM SCH (22:23)
[2023-12-30] MEDS: Acetaminophen/Butalbital/Caffeine 325-50-40 MG Tab PO PRN (06:19)
[2023-12-30 06:24] LABS: BASOPHILS PERCENT AUTO 0.2 % (0.0-1.0); HEMATOCRIT 24.6 % (37.0-47.0); LYMPHOCYTES PERCENT AUTO 13.1 % (20.5-50.1); MEAN CORPUSCULAR HEMOGLOBIN 17.8 pg (27.0-34.0); MEAN CORPUSCULAR VOLUME 63.6 fL (80-100); MONOCYTES PERCENT AUTO 4.6 % (2-8); NEUTROPHILS PERCENT AUTO 82.1 % (42.2-75.2); PLATELET COUNT,PLT 440 10^3/uL (150-450); RED BLOOD CELL COUNT 3.87 10^6/uL (4.2-5.4); WHITE BLOOD CELL COUNT,WBC 11.5 10^3/uL (5.0-10.0)
[2023-12-30 06:39] LABS: HEMOGLOBIN 6.9 g/dL (12.0-16.0)
[2023-12-30 06:50] LABS: ALBUMIN 2.5 g/dL (3.4-5.0); ANION GAP 13.1 mEq/L (7-13); BILIRUBIN TOTAL 0.1 mg/dL (0.2-1.0); BUN/CREATININE RATIO 10.3 (No establ ref range); C-REACTIVE PROTEIN 7.73 ng/dL (<=0.50); CALCIUM 8.6 mg/dL (8.5-10.1); CREATININE 0.58 mg/dL (0.55-1.02); EST CRCL DRUG DOSING (CG) 132.26 mL/min; POTASSIUM,K 4.1 mmol/L (3.5-5.1); PROTEIN TOTAL,TP 7.2 g/dL (6.4-8.2)
[2023-12-30 06:51] LABS: A/G RATIO 0.53
[2023-12-30] MEDS: Sodium Chloride 0.9% 10 ML Syringe FLUSH PRN (08:41)
[2023-12-30] MEDS: Benzocaine 20% Topical Spray UD MUCMEM PRN (11:45)
[2023-12-30] MEDS ORDERED: Ketorolac 30 MG/ML SDV IVPUSH PRN (11:48)
[2023-12-30 13:17] LABS: HEMATOCRIT 26.8 % (37.0-47.0); HEMOGLOBIN 7.4 g/dL (12.0-16.0)
[2023-12-30] MEDS: Loratadine 10 MG Tab PO SCH (21:22)
[2023-12-30] MEDS: Temazepam 15 MG Cap PO PRN (21:23)
[2023-12-31 06:22] LABS: HEMATOCRIT 26.7 % (37.0-47.0); HEMOGLOBIN 7.3 g/dL (12.0-16.0); MEAN CORPUSCULAR HEMOGLOBIN 17.5 pg (27.0-34.0); MEAN CORPUSCULAR HGB CONC 27.3 g/dL (33.0-35.0); MEAN CORPUSCULAR VOLUME 64.2 fL (80-100); PLATELET COUNT,PLT 515 10^3/uL (150-450); RED BLOOD CELL COUNT 4.16 10^6/uL (4.2-5.4); WHITE BLOOD CELL COUNT,WBC 10.5 10^3/uL (5.0-10.0)
[2023-12-31 06:26] LABS: BASOPHILS PERCENT AUTO 0.3 % (0.0-1.0); LYMPHOCYTES PERCENT AUTO 23.5 % (20.5-50.1); NEUTROPHILS PERCENT AUTO 70.2 % (42.2-75.2)
[2023-12-31 06:27] LABS: ALBUMIN 2.5 g/dL (3.4-5.0); ANION GAP 12.8 mEq/L (7-13); BILIRUBIN TOTAL 0.1 mg/dL (0.2-1.0); BUN/CREATININE RATIO 17.5 (No establ ref range); C-REACTIVE PROTEIN 3.34 ng/dL (<=0.50); CALCIUM 8.1 mg/dL (8.5-10.1); CREATININE 0.63 mg/dL (0.55-1.02); EST CRCL DRUG DOSING (CG) 121.77 mL/min; POTASSIUM,K 3.8 mmol/L (3.5-5.1); PROTEIN TOTAL,TP 7.2 g/dL (6.4-8.2)
[2023-12-31 06:30] LABS: A/G RATIO 0.53
[2023-12-31 07:30] LABS: BAND PERCENT MAN 6 %; HYPOCHROMASIA 1+ SLIGHT; LYMPHOCYTES PERCENT MAN 26 % (20-50); MONOCYTES PERCENT MAN 3 % (2-8); SEG NEUTROPHILS PERCENT MAN 65 % (42-75)
[2023-12-31] MEDS: Benzocaine 20% Topical Spray UD MUCMEM SCH (08:05)
[2023-12-31 11:45] VITALS: BP 125/71; PULSE 70
== END 2023-12-31 13:30 | disposition home or self-care (01) | DRG 720 ==
LOC: DL.ED 19:53 → DL.MS 22:02 → UNDOADMIN 22:02 → DL.MS 22:03
PROVIDERS: ADMIT Internal Medicine; ATTEND Internal Medicine
DX: A40.9 Streptococcal sepsis, unspecified (principal); J02.0 Streptococcal pharyngitis; H54.7 Unspecified visual loss; F32.A Depression, unspecified; E66.9 Obesity, unspecified; F17.210 Nicotine dependence, cigarettes, uncomplicated; E86.0 Dehydration; E87.6 Hypokalemia; D64.9 Anemia, unspecified; F41.9 Anxiety disorder, unspecified; R73.9 Hyperglycemia, unspecified; D75.839 Thrombocytosis, unspecified; Z68.39 Body mass index [BMI] 39.0-39.9, adult; Z86.16 Personal history of COVID-19
CPT/HCPCS: 36415; 70491; 71045; 80053; 80305-QW; 81001; 81025; 82947; 83605; 83735; 84145; 85014; 85018; 85025; 86140; 87040; 87428-QW; 87430; 93005; 93010; 96361; 96365; 96375; 99223; 99232; 99233; 99238; 99285; 99285-25; A9270-GY; J0295; J0696; J1100; J1171; J1200; J1885; J2405; J3480; J3490; J7030; J7042; Q9967

== ENCOUNTER 2024-11-05 10:05 | Emergency (ER) | payer BC ==
[2024-11-05] MEDS: Ketorolac 30 MG/ML SDV IM ONE (11:39)
[2024-11-05 12:56] VITALS: BP 120/56; PULSE 20
== END 2024-11-05 12:54 | disposition home or self-care (01) ==
LOC: DL.ED 10:05
DX: S22.31XA Fracture of one rib, right side, initial encounter for closed fracture (principal); E66.9 Obesity, unspecified; Z86.16 Personal history of COVID-19; Z68.41 Body mass index [BMI] 40.0-44.9, adult; X58.XXXA Exposure to other specified factors, initial encounter; Y93.68 Activity, volleyball (beach) (court)
CPT/HCPCS: 71101; 96372; 99283; J1885

== ENCOUNTER 2024-12-07 09:42 | Emergency (ER) | payer BC ==
[2024-12-07] MEDS: Lactated Ringers 2,000 ML IV SCH (10:15)
[2024-12-07 10:23] LABS: PLATELET COUNT,PLT 652 10^3/uL (150-450); RED BLOOD CELL COUNT 4.49 10^6/uL (4.2-5.4); WHITE BLOOD CELL COUNT,WBC 14.1 10^3/uL (5.0-10.0)
[2024-12-07 10:26] LABS: BASOPHILS PERCENT AUTO 0.4 % (0.0-1.0); EOSINOPHILS PERCENT AUTO 2.3 % (1.0-3.0); LYMPHOCYTES PERCENT AUTO 15.2 % (20.5-50.1); MONOCYTES PERCENT AUTO 8.4 % (2-8); NEUTROPHILS PERCENT AUTO 73.7 % (42.2-75.2)
[2024-12-07 10:34] LABS: APPEARANCE,URINE CLEAR (CLEAR); GLUCOSE,URINE NEGATIVE (NEGATIVE); OCCULT BLOOD,URINE MODERATE (NEGATIVE)
[2024-12-07 10:40] LABS: EOSINOPHILS PERCENT MAN 3 % (1-3); LYMPHOCYTES PERCENT MAN 15 % (20-50); MONOCYTES PERCENT MAN 9 % (2-8); SEG NEUTROPHILS PERCENT MAN 73 % (42-75)
[2024-12-07] MEDS: Ketorolac 30 MG/ML SDV IVPUSH ONE (10:42)
[2024-12-07 10:43] LABS: A/G RATIO 0.7; ALANINE AMINOTRANSFERASE,ALT 62.0 U/L (14-59); ASPARTATE AMNIOTRANSFERASE,AST 45.0 U/L (15-37); BILIRUBIN TOTAL 0.3 mg/dL (0.2-1.0); BLOOD UREA NITROGEN,BUN 5.0 mg/dL (7-18); CARBON DIOXIDE,CO2 20.0 mmol/L (21-32); CHLORIDE,CL 106.0 mmol/L (98-107); CREATININE 0.63 mg/dL (0.55-1.02); EST CRCL DRUG DOSING (CG) 120.7 mL/min; ESTIMATED GFR 125.0 mL/min (>=60); GLUCOSE RANDOM 114.0 mg/dL (70-99); POTASSIUM,K 3.5 mmol/L (3.5-5.1); PROTEIN TOTAL,TP 8.5 g/dL (6.4-8.2); SODIUM,NA 139.0 mmol/L (136-145)
[2024-12-07] MEDS: Dexamethasone 4 MG/ML SDV IVPUSH ONE (10:44)
[2024-12-07 10:47] LABS: LACTIC ACID 2.2 mmol/L (0.4-2.0)
[2024-12-07] MEDS: Sodium Chloride 0.9% 10 ML Syringe FLUSH PRN (10:48)
[2024-12-07] MEDS: Ampicillin/Sulbactam Na 3 GM in Sodium Chloride 0.9% 100 ML IV ONE (10:49)
[2024-12-07 10:53] LABS: EPITHELIAL CELLS,URINE FEW /HPF (NOT SEEN)
[2024-12-07] MEDS: Ondansetron 4 MG/2 ML SDV IVPUSH ONE (11:17)
[2024-12-07 13:55] VITALS: BP 105/61; PULSE 101
== END 2024-12-07 13:53 | disposition home or self-care (01) ==
LOC: DL.ED 09:42
DX: J02.9 Acute pharyngitis, unspecified (principal); E66.9 Obesity, unspecified; Z79.899 Other long term (current) drug therapy; Z86.16 Personal history of COVID-19
CPT/HCPCS: 36415; 71045; 80053; 81001; 81025; 83605; 85025; 86140; 87040; 87081; 87086; 87430; 96361; 96365; 96375; 99283; A9270; J0295; J1100; J1885; J2405; J7120; 87088; 87186